=== PATIENT | female | born 1990 | race African-American/Black ===

== ENCOUNTER → 2020-09-28 16:43 | Outpatient (BNVA) | payer MEDICARE, MEDICAID, SELFPAY | PROVIDERS: Visit Provider Internal Medicine Gastroenterology | DX: K21.9 Gastro-esophageal reflux disease without esophagitis (principal); K50.90 Crohn's disease, unspecified, without complications; R11.2 Nausea with vomiting, unspecified; D64.9 Anemia, unspecified; R93.5 Abnormal findings on diagnostic imaging of other abdominal regions, including retroperitoneum; Z98.890 Other specified postprocedural states; Z79.899 Other long term (current) drug therapy | CPT/HCPCS: Q3014 ==

== ENCOUNTER 2020-10-23 07:55 | Day surgery (SDC) | payer MEDICARE, MEDICAID, SELFPAY ==
[2020-10-17 15:13] VITALS: BMI 20.5
--- NOTE | 2020-10-19 13:44 | P.CONAN_ITS ---
Documented by User: Monserrat Shah 10/19/20 13:44 HPI - Anesthesia Eval Consult details Narrative: 30yo F for Upper Endoscopy and Colonoscopy PMFSH Active Problems Active Problems: All Active Problems (Updated 10/17/20 @ 15:13 by Naomi Manning) Crohn's disease (Acute) GERD (gastroesophageal reflux disease) (Acute) Abnormal computed tomography of abdomen and pelvis (Acute) Anemia (Acute) BMI less than 19,adult (Acute) Hemoglobin C trait (Acute) Nausea and vomiting (Acute) Premenstrual syndrome (Acute) Past Medical History Medical History Crohn's disease GERD (gastroesophageal reflux disease) Syncopal episodes Surgical History Surgical History History of esophagogastroduodenoscopy (EGD) Hx of colonoscopy Social History Social History Household Members: None Alcohol intake: current Alcohol intake frequency: a few times a month Smoking Status: Never smoker Advance Directives: No Advance Directives Information Provided: No Advance Directives on File: No Meds Allergies Allergy/AdvReac Type Severity Reaction Status Date / Time aloe vera Allergy Mild rash, Verified 10/17/20 15:06 hives, redness infliximab [From Remicade] Allergy Mild rash, Verified 10/17/20 15:06 hives, redness latex Allergy Mild rash, Verified 10/17/20 15:06 hives, redness Penicillins Allergy Mild Unknown Verified 10/17/20 15:06 Home Medications Medication Instructions Recorded Confirmed Last Taken Type cholecalciferol (vitamin D3) 1,250 1,250 mcg PO QWEEK 09/28/20 10/17/20 Unknown History mcg (50,000 unit) capsule mirtazapine 15 mg tablet 7.5 mg PO BEDTIME tab 09/28/20 10/17/20 Unknown History multivitamin 1 tab PO DAILY 09/28/20 10/17/20 Unknown History ondansetron 4 mg disintegrating 4 mg PO Q8H 09/28/20 10/17/20 Unknown History tablet esomeprazole magnesium 40 mg PO DAILY 10/17/20 10/17/20 Unknown History fluticasone propionate 1 spray INTRANASAL DAILY 10/17/20 10/17/20 Unknown History Exam Exam Date and Time: October 19, 2020 1344 Height,Weight and Vital Signs: Height 5 ft 6 in Weight 57.606 kg Assessment and Plan Assessment Anesthesia Assessment: Chart Reviewed Documented by User: Lana Matta 10/23/20 09:02 [facility] Past Medical History Medical History Crohn's disease GERD (gastroesophageal reflux disease) Syncopal episodes Family History Family history of problems with anesthesia: No Surgical History Surgical History History of esophagogastroduodenoscopy (EGD) Hx of colonoscopy History of Problems with Anesthesia: No Social History Social History Household Members: None Alcohol intake: current Alcohol intake frequency: a few times a month Smoking Status: Never smoker Advance Directives: No Advance Directives Information Provided: No Advance Directives on File: No Meds Allergies Allergy/AdvReac Type Severity Reaction Status Date / Time aloe vera Allergy Mild rash, Verified 10/17/20 15:06 hives, redness infliximab [From Remicade] Allergy Mild rash, Verified 10/17/20 15:06 hives, redness latex Allergy Mild rash, Verified 10/17/20 15:06 hives, redness Penicillins Allergy Mild Unknown Verified 10/17/20 15:06 Home Medications Medication Instructions Recorded Confirmed Last Taken Type cholecalciferol (vitamin D3) 1,250 1,250 mcg PO QWEEK 09/28/20 10/17/20 Unknown History mcg (50,000 unit) capsule mirtazapine 15 mg tablet 7.5 mg PO BEDTIME tab 09/28/20 10/17/20 Unknown History multivitamin 1 tab PO DAILY 09/28/20 10/17/20 Unknown History ondansetron 4 mg disintegrating 4 mg PO Q8H 09/28/20 10/17/20 Unknown History tablet esomeprazole magnesium 40 mg PO DAILY 10/17/20 10/17/20 Unknown History fluticasone propionate 1 spray INTRANASAL DAILY 10/17/20 10/17/20 Unknown History Exam Height,Weight and Vital Signs: Vital Signs Temp Pulse Resp BP Pulse Ox 10/23/20 08:13 97.5 F 81 16 104/62 98 Pertinent Lab Results Pertinent Lab Results: Lab Results 10/23/20 Range/Units 08:08 Urine Test NEGATIVE (NEGATIVE) Airway Mallampati Class: II TM Dist: >3cm Neck ROM: Full Loose/Missing/Broken Teeth: Yes (Broken bottom right back) Heart: RRR Lungs: CTAB Assessment and Plan Assessment Anesthesia Assessment: Anesthesia Plan Discussed and Chart Reviewed Final Anesthetic Review NPO: Yes ASA Class: II Final Preanesthetic Review: No Changes in Pt Med Stat, Meds/Allgs Chart Reviewed, Consent Obtained/Reviewed and Anes Risks/Benef Reviewed Patient Risk: Low Procedure Risk: Low Assessment/Block/Sedation in SS: Assess/Block/Sedation-SS Anesthetic Plan Anesthetic Plan: MAC: Disposition: Standard PACU
[2020-10-23] VITALS (7 sets, daily range): BP systolic 96–120; BP diastolic 48–77; PULSE 79–87; RESP 10–20; TEMP 36.3–37.3; O2SAT 98–100
[2020-10-23] MEDS: Sodium Phosphate,Mono-Dibasic 133 ML ENEMA PR ×2 (08:20→08:32)
--- NOTE | 2020-10-23 08:27 | W.PM.OPN ---
Operative Note Operative Note Date of Service: 10/23/20 Narrative: Pre-op diagnosis: Crohn's disease, GERD, nausea and vomiting Post-op diagnosis: other (Gastritis, ulcers in TI, diverticulosis) Procedure: FLEXIBLE TRANSORAL UPPER GASTROINTESTINAL ENDOSCOPY WITH BIOPSIES AND COLONOSCOPY TILL CECUM/TI WITH BIOPSIES UPPER ENDOSCOPY Consent: Indications for the procedure and potential complications of bleeding, perforation, reaction to medications and missed diagnosis were discussed with the patient and informed consent was obtained. Instrument: Olympus GIF H 190 mid size upper endoscope Monitoring: Vital signs and clinical assessment, continuous EKG monitoring, Pulse oximetry, Carbon Dioxide monitoring and blood pressure monitoring were done throughout the procedure. Procedure: The patient was placed in the left lateral decubitis position and pre-procedure medications were administered and a bite block was placed. The endoscope was inserted into the mouth and advanced under direct vision to the third part of duodenum. A careful inspection was made as the upper endoscope was withdrawn including a retroflexed examination of the proximal stomach; Findings and interventions are described below. Findings: Larynx: normal. Esophagus: GE junction at 35 cms. Minimal focal superficial esophagitis 2 cms above the GEJ -likely related to retching and vomiting. No Rivera's. Stomach: Submucosal hemorrhages in the gastric fundus likely related to retching. Mild gastric erythema. Biopsies were obtained. Grade 2 flap valve on retroflexed examination of the cardia. Duodenum: Normal bulb and descending duodenum. Biopsies were obtained from 3rd part of the duodenum to check for upper GI Crohn's/celiac sprue. Intervention: Biopsies as noted above COLONOSCOPY PROCEDURE NOTE Consent: Indications for the procedure and potential complications of bleeding, perforation, reaction to medications and missed diagnosis were discussed with the patient and informed consent was obtained. Instrument: Olympus PCF H 190 L variable stiffness pediatric colonoscope Monitoring: Vital signs and clinical assessment, intermittent blood pressure monitoring, continuous EKG monitoring, Pulse oximetry and Carbon Dioxide monitoring were done throughout the procedure. Colon withdrawl time was 27 minutes. Procedure: The patient was placed in the left lateral decubitis position and pre-procedure medications were administered. After a digital rectal examination of the ano-rectum, the video colonoscope was inserted into the rectum and advanced through the colon to the cecum. The colonoscope was slowly withdrawn in a retrograde panoramic fashion and the colon mucosa was carefully examined including a retroflexed view of the rectum. Findings and interventions are described below. Procedure Difficulty: : Without difficulty Findings: Terminal Ileum: Distal 10-15 cms was examined and mucosa appeared edematous with multiple 2-5 mm chronic appearing ulcers - multiple biopsies obtained Cecum: Normal Ascending Colon: Normal Transverse Colon: Normal Descending Colon: Normal Sigmoid Colon: Moderate diverticulosis Rectum: Normal Ano-rectum: Small internal hemorrhoids Colon preparation: Good after some irrigation Impression and Post Procedure Diagnosis: Endoscopy Findings: ESOPHAGUS: Minimal focal superficial esophagitis 2 cms above the GEJ -likely related to retching and vomiting. No Rivera's. STOMACH: Submucosal hemorrhages in the gastric fundus likely related to retching. Mild gastric erythema. Biopsies were obtained. DUODENUM: Normal - biopsied to check for upper GI Crohn's disease Colonoscopy Findings: Distal 10-15 cms was examined and mucosa appeared edematous with multiple 2-5 mm chronic appearing ulcers - multiple biopsies obtained. Random biopsies were obtained from the right and left colon. No polyps were detected Moderate diverticulosis seen in the sigmoid colon Small hemorrhoids on retroflexed exam. Plan: Await pathology results Patient has an appointment on 11/12/20 in the GI Clinic with Walter Moeller M.D.. Repeat Colonoscopy interval based on path results - in 3-5 years if polyps are adenomatous and 10 years if polyps are hyperplastic. Above findings were reviewed with the patient and [colon polyps] and [diverticulosis] handouts were given in the discharge area Surgeon: Walter Moeller MD Anesthesia: MAC (Princess Cobian CRNA) Data Compiler: Migel Griffin Estimated blood loss (mL): 0 Pathology: other (A- SMALL BOWEL BXS R/O CROHN'S R/O CELIAC B- GASTRIC BXS R/O H. PYLORI C- TI BXS D- RANDOM RIGHT COLON BXS R/O CROHN'S E- RANDOM LEFT COLON BXS R/O CROHN'S F- RECTAL PO) Condition: stable Disposition: PACU
--- NOTE | 2020-10-23 08:27 | MHC.SHP ---
Pre-Procedural Eval Section A The patient is an INPATIENT: No Changes since office visit: Yes Patient answered all questions; No Cold of Flu in the past 2 weeks, No New Medical Problems and No Changes in Medication The History & Physical has been completed within 30 days and I have reviewed it.: Yes Section B Chief Complaint: crohns Allergies: Allergies Allergy/AdvReac Type Severity Reaction Status Date / Time aloe vera Allergy Mild rash, Verified 10/17/20 15:06 hives, redness infliximab [From Remicade] Allergy Mild rash, Verified 10/17/20 15:06 hives, redness latex Allergy Mild rash, Verified 10/17/20 15:06 hives, redness Penicillins Allergy Mild Unknown Verified 10/17/20 15:06 Review of Systems Sugical H&P ROS: Negative: Constitution, Cardiovascular and Respiratory and Yes, Specify: Gastrointestinal (Nausea and vomiting, diarrhea) Exam Surgical H&P Exam: Normal: Heart, Normal: Lungs, Normal: Extremities and Normal: Abdomen Plan Diagnosis/Plan: Unchanged I have reviewed the history and physical and performed a pertinent physical examination on my patient. No changes have occurred unless specified.
[2020-10-23 08:28] LABS: UPreg QC Valid YES; Urine Pregnancy NEGATIVE (NEGATIVE)
[2020-10-23] MEDS: Lactated Ringers 1,000 ML 100 ML IVCONT (08:54)
[2020-10-23] MEDS: ondansetron HCL 4 MG/2 ML VIAL IVPUSH (09:24)
--- NOTE | 2020-10-23 09:25 | PC.NURSE ---
patient dry heaving. states she usually takes zofran once a day. medicated with zofran and md hough gave reglan iv.
--- NOTE | 2020-10-23 09:28 | PC.NURSE ---
denies pain. dry heaving. hob 90 degrees. awaiting for medications to work.
[2020-10-23 11:25] LABS: MANUAL DIFF FLAG NO
[2020-10-23 11:33] LABS: Basophils Percent Auto 0.2 % (0-2); Eosinophils Absolute Auto 0.1 X10*3/uL (0.0-0.4); Eosinophils Percent Auto 0.4 % (0-4); Hematocrit 31.2 % (37-47); Hemoglobin 10.3 g/dl (12.0-16.0); Imm Gran Abs Auto 0.06 X10*3/uL (0.00-0.03); Imm Gran Pct Auto 0.4 % (0.0-0.4); Lymphocytes Absolute Auto 1.7 X10*3/uL (1.2-4.9); Lymphocytes Percent Auto 12.7 % (20-40); Mean Corpuscular Hemoglobin 23.6 pg (27.0-33.0); Mean Corpuscular Volume 71.4 fL (80-98); Mean Platelet Volume 11.5 fL (9.4-12.3); Monocytes Absolute Auto 0.6 X10*3/uL (0.1-1.2); Monocytes Percent Auto 4.4 % (2-11); Neutrophils Absolute Auto 10.9 X10*3/uL (2.0-8.3); Neutrophils Percent Auto 81.9 % (45-73); Platelet Count 297 X10*3/uL (160-400); Red Blood Count 4.37 X10*6/uL (4.20-5.50); Red Cell Distribution Width 15.8 % (11.0-16.0); White Blood Count 13.4 X10*3/uL (4.8-10.8)
[2020-10-23 11:54] LABS: Alanine Aminotransferase 29 U/L (0-31); Albumin Level 3.9 g/dL (3.5-5.0); Alkaline Phosphatase 60 U/L (39-117); Anion Gap 13 (12-20); Aspartate Amino Transferase 26 U/L (5-31); Bilirubin Total 0.3 mg/dL (0.0-1.0); Blood Urea Nitrogen 7 mg/dL (9-16); C Reactive Protein 0.42 mg/dL (< or = 0.50); Calcium 8.9 mg/dL (8.4-10.2); Carbon Dioxide 21 mmol/L (22-29); Chloride 109 mmol/L (96-108); Creatinine Clr Calc Pharmacy 107.4; Estimated Glomerular Filt Rate > 60; Glucose Random 119 mg/dL (60-115); Iron 33 mcg/dL (30-160); Percent Iron Saturation 9 % (15-50); Potassium 4.4 mmol/L (3.3-5.1); Sodium 139 mmol/L (135-145); Total Iron Binding Capacity 368 mcg/dL (228-428); Total Protein 6.9 g/dL (6.5-8.0); Unsaturated Iron Binding 335 ug/dL
[2020-10-23 12:12] LABS: Ferritin 6 ng/mL (10-122); Vitamin D 25-OH Total 9.9 ng/mL (>30)
[2020-10-23 12:37] LABS: Erythrocyte Sedimentation Rate 15 MM/HR (0-20)
[2020-10-23 12:42] LABS: Folate 10.6 ng/mL (> or = 4.0); Vitamin B12 420 pg/mL (200-900)
--- NOTE | 2020-10-23 13:55 | PC.NURSE ---
Late Entry - pt came through discharge at 1150 today. she had severe hyperemesis. Dr Moeller and Dr Matta contacted and updated with pt condition. Dr Matta ordered a dose of IV Phenargan to be administed. Pt transported back to PACU for iv insertion and administration of Phenargan by PACU staff
== END 2020-10-23 13:27 | disposition home or self-care (01) ==
PROVIDERS: Nurse Practitioner; Visit Provider Internal Medicine Gastroenterology
PROC: (CPT 45380; principal; 2020-10-23 09:00)
DX: K50.90 Crohn's disease, unspecified, without complications (principal); K57.30 Diverticulosis of large intestine without perforation or abscess without bleeding; K62.1 Rectal polyp; K63.3 Ulcer of intestine; K29.51 Unspecified chronic gastritis with bleeding; K21.00 Gastro-esophageal reflux disease with esophagitis, without bleeding; Z79.899 Other long term (current) drug therapy; Z88.8 Allergy status to other drugs, medicaments and biological substances; Z88.0 Allergy status to penicillin; Z91.040 Latex allergy status
CPT/HCPCS: 45380; 43239; 36415; 80053; 81025; 82306; 82607; 82728; 82746; 83540; 85025; 85652; 86140; 88305; 88342; J0330; J2405; J2550; J2765; J3010

== ENCOUNTER 2021-05-23 07:13 | Outpatient (REF) | payer MEDICARE, MEDICAID, SELFPAY ==
[2021-05-23 11:25] LABS: MANUAL DIFF FLAG SCAN; SCAN SMEAR FLAG 1
[2021-05-23 11:27] LABS: Basophils Percent Auto 0.4 % (0-2); Eosinophils Absolute Auto 0.1 X10*3/uL (0.0-0.4); Eosinophils Percent Auto 1.2 % (0-4); Imm Gran Abs Auto 0.02 X10*3/uL (0.00-0.03); Imm Gran Pct Auto 0.2 % (0.0-0.4); Lymphocytes Absolute Auto 2.3 X10*3/uL (1.2-4.9); Lymphocytes Percent Auto 23.4 % (20-40); Mean Corpuscular HGB Conc 34.4 g/dl (31.0-35.0); Mean Corpuscular Hemoglobin 23.6 pg (27.0-33.0); Mean Corpuscular Volume 68.5 fL (80.0-98.0); Mean Platelet Volume 12.1 fL (9.4-12.3); Monocytes Absolute Auto 0.6 X10*3/uL (0.1-1.2); Monocytes Percent Auto 6.5 % (2-11); Neutrophils Absolute Auto 6.8 x10*3/uL (2.0-8.3); Neutrophils Percent Auto 68.3 % (45-73); Platelet Count 295 X10*3/uL (160-400); Red Blood Count 4.67 X10*6/uL (4.20-5.50); Red Cell Distribution Width 16.5 % (11.0-16.0); White Blood Count 9.9 X10*3/uL (4.8-10.8)
[2021-05-23 11:31] LABS: PLT ABN DIST 1
[2021-05-23 11:50] LABS: Alanine Aminotransferase 64 U/L (0-31); Albumin Level 4.5 g/dL (3.5-5.0); Alkaline Phosphatase 94 U/L (39-117); Aspartate Amino Transferase 29 U/L (5-31); Bilirubin Direct 0.2 mg/dL (0.0-0.5); Bilirubin Total 0.4 mg/dL (0.0-1.0); Blood Urea Nitrogen 8 mg/dL (9-16); C Reactive Protein 0.48 mg/dL (< or = 0.50); Estimated Glomerular Filt Rate > 60; Iron 41 mcg/dL (30-160); Percent Iron Saturation 9 % (15-50); Total Iron Binding Capacity 446 mcg/dL (228-428); Total Protein 8.1 g/dL (6.5-8.0); Unsaturated Iron Binding 405 ug/dL
[2021-05-23 11:53] LABS: Ferritin 8 ng/mL (10-122)
[2021-05-23 13:24] LABS: Erythrocyte Sedimentation Rate 25 MM/HR (0-20)
== END 2021-05-23 07:14 | disposition home or self-care (01) ==
LOC: HO.HMGCLDS 07:13
PROVIDERS: Visit Provider Internal Medicine Gastroenterology
DX: K21.9 Gastro-esophageal reflux disease without esophagitis (principal); K50.90 Crohn's disease, unspecified, without complications; R93.5 Abnormal findings on diagnostic imaging of other abdominal regions, including retroperitoneum
CPT/HCPCS: 36415; 80076; 82565; 82728; 83540; 84520; 85025; 85652; 86140

== ENCOUNTER 2022-02-10 07:42 | Outpatient (AMB) | payer MEDICARE, MEDICAID, SELFPAY ==
--- NOTE | 2022-02-10 07:44 | A.OFFVIS_ITS ---
Vital Signs 02/10/22 08:01 Height 5 ft 6 in Weight 142 lb BMI 22.8 BP 94/56 L Position Sitting Respiration 16 Pulse 70 Intake Visit Reasons: Crohn's flare up Allergies aloe vera Allergy (Mild, Verified 02/10/22 08:01) rash, hives, redness infliximab [From Remicade] Allergy (Mild, Verified 02/10/22 08:01) rash, hives, redness latex Allergy (Mild, Verified 02/10/22 08:01) rash, hives, redness Penicillins Allergy (Mild, Verified 02/10/22 08:01) Unknown kiwi Allergy (Severe, Uncoded 02/10/22 08:01) Anaphylaxis percocet Allergy (Mild, Uncoded 02/10/22 08:01) Hives Medication List - Last Reconciled 02/10/22 by Walter Moeller MD esomeprazole magnesium 40 mg PO DAILY 30 days fluticasone propionate 50 mcg/actuation 1 spray intranasal DAILY mirtazapine (Remeron) 7.5 mg PO BEDTIME multivitamin 1 tab PO DAILY ondansetron 4 mg PO Q8H HPI HPI Crohn's flare up: Details: GI CLINIC VISIT FOR THIS 31 YEAR-OLD FEMALE FOR FOLLOW-UP OF CROHN'S DISEASE [place]S [place] [facility]07[place]18/2020 WBC 5.4, HEMOGLOBIN 11.4, HEMATOCRIT 34.2, MCV 71.8, PLATELETS 252, Sodium 139, potassium 4, chloride 107, bicarbonate 25, glucose 86, BUN 9, creatinine 0.7, calcium 9.3 Hemoglobin A1c was 5.1. T spot was negative. ENDOSCOPIC STUDIES: 10/2020 EGD AND COLONOSCOPY SHOWED: ESOPHAGUS: Minimal focal superficial esophagitis 2 cms above the GEJ -likely related to retching and vomiting.? No Rivera's. STOMACH: Submucosal hemorrhages in the gastric fundus likely related to retching.? Mild gastric erythema. Biopsies were obtained. DUODENUM:? Normal - biopsied to check for upper GI Crohn's disease Colonoscopy Findings: Distal 10-15 cms was examined and mucosa appeared edematous with multiple 2-5 mm chronic appearing ulcers - multiple biopsies obtained. Random biopsies were obtained from the right and left colon. No polyps were detected Moderate diverticulosis seen in the sigmoid colon Small hemorrhoids on retroflexed exam. Plan: Repeat Colonoscopy interval based on path results - in 5 yrs if colon biopsies are normal. BIOPSIES SHOWED: A. Small bowel, biopsy: Small bowel mucosa within normal limits; preserved villous architecture and no increased intraepithelial lymphocytes. B. Stomach, biopsy: Gastric antral mucosa within normal limits; negative for Helicobacter pylori, intestinal metaplasia and dysplasia. C. Terminal ileum, biopsy: Active ileitis, patchy, with mild activity (see co mment). D. Colon, right, biopsy: Colonic mucosa within normal limits; negative for active, chronic or microscopic colitis. E. Colon, left, biopsy: Colonic mucosa within normal limits; negative for act colleen, chronic or microscopic colitis. F. Rectum, polypectomy: Hyperplastic polyp. COMMENT (C): Neither chronic mucosal injury nor granulomas are seen. The differential diagnosis includes infection, drug effect and early idiopathic inflammatory bowel disease. IBD SUMMARY YEAR OF DIAGNOSIS: 2010 DISEASE EXTENT:? LAST COLONOSCOPY:? 2010 NEXT COLON DUE:? 2020 EXTRAINTESTINAL MANIFESTATIONS:? None GI SURGERY:? None PAST TREATMENTS:? Remicade with benadryl CURRENT THERAPY:? None TODAY'S VISIT: Having a flare since the or 2nd week of December,. Notes diarhhea, nausea, vomiting and intense heartburn. Burning inside the stomach. Back pain when pain is severe. Dizziness due to dehydration from nausea and vomiting. 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 Pt complains of occasional nausea and vomiting. [place] by Dr Mchugh [place] [facility] [place]. Has not been seen for the past 2-3 yrs. Noted nausea, vomiting and non bloody diarrhea since 2010. Evaluated by EGD and Colonoscopy and diagnosed with Crohn's diseases. Started on Remicade and had an allergic response on getting the 2nd or 3rd dose. She was continued on Remicade x 3 yrs (she was given benadryl before the Remicade infusion). Stopped going to GI since 2016. Has not been on any treatment since. Intermittent nausea and vomiting. Has a BM daily - sometimes loose (4-5 times a day) and sometimes they are formed. Appetite is good.? Lost some weight initially and has been gaining recently Weighs 127 lbs, Ht 5 feet 6 inches Denies any extraintestinal manifestations of CD. Patient denies major cardiac or pulmonary problems, loud snoring or sleep apnea Denies problems with anesthesia in the past. Denies being on chronic anticoagulation. Patient denies known family history of colon polyps, colon cancer or other GI malignancies. 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 She has no children. PAST EGD/COLONOSCOPY: 2010 at [facility] Review of Systems Const Reports difficulty sleeping, Denies fever(s), Reports headache(s) and Denies weight loss Eyes Denies eye discharge, Reports dry eyes and Denies irritation ENT Denies dysphagia, Denies dizziness, Reports dry mouth and Reports headache(s) Card Reports chest pain, Denies leg edema, Reports dyspnea ( at rest), Reports dyspnea on exertion and Reports other ( palpitations) Resp Denies cough, Reports dyspnea ( at rest) and Reports dyspnea on exertion GI Reports abdominal pain, Denies change in bowel habits, Denies dysphagia, Denies heartburn and Reports diarrhea Denies difficulty voiding, Denies dysuria and Reports other ( urinary frequency) Musc Denies back pain and Reports arthralgias ( arthritis) Skin/Breast Denies pruritus, Reports rash, Denies jaundice and Reports other (Alopecia, photosensitivity) Neuro Denies dizziness, Reports headache(s) and Denies seizure-like activity Psych Reports anxiety, Reports depression and Denies panic attacks PFSH Medical History Crohn's disease GERD (gastroesophageal reflux disease) Syncopal episodes Surgical History History of esophagogastroduodenoscopy (EGD) Hx of colonoscopy Social History Household Members: None Alcohol intake: current Alcohol intake frequency: a few times a month Physical Exam Vital Signs: Last Vital Signs Pulse 70 02/10/22 08:01 Resp 16 02/10/22 08:01 BP 94/56 L 02/10/22 08:01 BMI result Body Mass Index 22.8 Const General: no acute distress Nutritional Appearance: average body habitus Orientation/consciousness: patient oriented x3 Limitations: no limitations HEENT Head: Yes normal to inspection Ears: hearing grossly normal bilaterally Eyes Sclerae: sclerae normal Pupils: Equal, round and reactive pupils present Neck Neck: Yes normal visual inspection Chest Chest palpation & inspection: normal inspection of the chest Resp Effort & Inspection: normal respiratory effort Auscultation: clear to auscultation bilaterally Cardio Palpation: normal PMI Rate: regular rate Rhythm: regular rhythm Heart sounds: S1 normal heart sound present, S2 normal heart sound present and no murmurs GI Palpation (GI): Soft to palpation, nontender and No hepatosplenomegaly present Auscultation: normal bowel sounds Rectal Exam - Female: deferred Skin General skin exam: no rashes or lesions noted Neuro General: patient oriented x3, gait normal and moves all extremities Cranial nerves: Yes Equal, round and reactive pupils present Psych Appearance: grossly normal Mental Status: mental status grossly normal Assessment & Plan Assessment & Plan (1) Crohn's disease: Code(s): K50.90 - Crohn's disease, unspecified, without complications Category: Medical (2) GERD (gastroesophageal reflux disease): Code(s): K21.9 - Gastro-esophageal reflux disease without esophagitis Category: Medical (3) Anemia: Code(s): D64.9 - Anemia, unspecified Category: Medical Plan 31 YF diagnosed with Crohn's disease in 2010 and previously followed [place] Mchugh [place] [facility] Last endoscopic evaluation was in 2020. Patient continues to have symptoms of intermittent nausea and vomiting and non- bloody diarrhea. Patient was treated with the Remicade infusion from 2013 to 2016.? Benadryl was given with Remicade due to history of allergic reaction after the 2nd or 3rd dose. Patient was advised further evaluation with upper endoscopy and colonoscopy to determine Crohn's disease activity prior to initiating fpc therapy. Both procedures and potential complications including bleeding, perforation, drug reaction, aspiration and misdiagnosis were reviewed with the patient.? She will be prepped with Dulcolax and MiraLax. GI follow-up 1-2 weeks after her endoscopic procedures. Handout on Crohn disease was mailed to the patient with her after visit summary. 02/10/22 Having a flare since the 1st or 2nd week of December,. Notes diarhhea, nausea, vomiting and intense heartburn. Burning inside the stomach. Back pain when pain is severe. Pt advised to start Pentasa, check labs and schedule an MRI FU in 6 weeks after MRI ADDENDUM: MRI SHOWED: Mild wall thickening and enhancement of the terminal ileum compatible with patient's history of Crohn's disease.. Upper normal-size small bowel mesentery lymph nodes. Small liver cysts and probable hemangiomas. Bilateral renal cysts. Small uterine fibroids. Orders: Orders C Reactive Protein 02/10/22 K50.90 - Crohn's disease, unspecified, without complications, D64.9 - Anemia, unspecified Comprehensive Met. Panel 02/10/22 K50.90 - Crohn's disease, unspecified, without complications, D64.9 - Anemia, unspecified MR abdomen wo/w con 02/10/22 K50.90 - Crohn's disease, unspecified, without complications MR pelvis wo/w con 02/10/22 K50.90 - Crohn's disease, unspecified, without complications Complete Blood Count Auto Diff 02/10/22 K50.90 - Crohn's disease, unspecified, without complications, D64.9 - Anemia, unspecified Medications: New mesalamine ER (Pentasa) 1,000 mg (4 x 250 mg) PO QID 480 caps 2RF 30 days K50.90 - Crohn's disease, unspecified, without complications cholecalciferol (vitamin D3) 250 mcg PO 2XW 26 caps 1RF 90 days E55.9 - Vitamin D deficiency, unspecified Refilled esomeprazole magnesium 40 mg PO DAILY 30 caps 1RF GERD 30 days
[2022-02-10 08:01] VITALS: BP 94/56; PULSE 70; RESP 16; BMI 22.8
== END 2022-02-10 08:28 | disposition home or self-care (01) ==
LOC: HO.HGI 07:42
PROVIDERS: Visit Provider Internal Medicine Gastroenterology
DX: K50.90 Crohn's disease, unspecified, without complications (principal); K21.9 Gastro-esophageal reflux disease without esophagitis; D64.9 Anemia, unspecified
CPT/HCPCS: 99499

== ENCOUNTER 2022-02-10 08:35 | Outpatient (REF) | payer MEDICARE, MEDICAID, SELFPAY ==
[2022-02-10 08:58] LABS: MANUAL DIFF FLAG NO
[2022-02-10 09:18] LABS: Basophils Percent Auto 0.3 % (0-2); Eosinophils Absolute Auto 0.1 X10*3/uL (0.0-0.4); Eosinophils Percent Auto 1.5 % (0-4); Hematocrit 37.2 % (37.0-47.0); Hemoglobin 12.5 g/dl (12.0-16.0); Imm Gran Abs Auto 0.02 X10*3/uL (0.00-0.03); Imm Gran Pct Auto 0.3 % (0.0-0.4); Lymphocytes Absolute Auto 1.8 X10*3/uL (1.2-4.9); Mean Corpuscular HGB Conc 33.6 g/dl (31.0-35.0); Mean Corpuscular Volume 71.5 fL (80.0-98.0); Mean Platelet Volume 11.4 fL (9.4-12.3); Monocytes Absolute Auto 0.4 X10*3/uL (0.1-1.2); Monocytes Percent Auto 6.2 % (2-11); Neutrophils Absolute Auto 3.7 x10*3/uL (2.0-8.3); Neutrophils Percent Auto 61.7 % (45-73); Platelet Count 325 X10*3/uL (160-400); Red Cell Distribution Width 14.6 % (11.0-16.0); White Blood Count 5.9 X10*3/uL (4.8-10.8)
[2022-02-10 09:57] LABS: Alanine Aminotransferase 40 U/L (0-31); Albumin Level 4.8 g/dL (3.5-5.0); Alkaline Phosphatase 84 U/L (39-117); Anion Gap 16 (12-20); Aspartate Amino Transferase 23 U/L (5-31); Bilirubin Total 0.3 mg/dL (0.0-1.0); Blood Urea Nitrogen 10 mg/dL (9-16); C Reactive Protein 1.09 mg/dL (< or = 0.50); Calcium 9.8 mg/dL (8.4-10.2); Carbon Dioxide 24 mmol/L (22-29); Chloride 106 mmol/L (96-108); Estimated Glomerular Filt Rate > 60; Glucose Random 96 mg/dL (60-115); Potassium 4.5 mmol/L (3.3-5.1); Sodium 141 mmol/L (135-145); Total Protein 8.5 g/dL (6.5-8.0)
== END 2022-02-10 08:36 | disposition home or self-care (01) ==
LOC: HO.LAB 08:35
PROVIDERS: Visit Provider Internal Medicine Gastroenterology
DX: K50.90 Crohn's disease, unspecified, without complications (principal); D64.9 Anemia, unspecified
CPT/HCPCS: 36415; 80053; 85025; 86140

== ENCOUNTER 2022-03-03 09:04 | Outpatient (REF) | payer MEDICARE, MEDICAID, SELFPAY ==
--- NOTE | ~2022-03-03 | MR_ITS ---
EXAMINATION: MR ABDOMEN AND PELVIS WITH AND WITHOUT CONTRAST CLINICAL INFORMATION: Crohn's disease. Heartburn and reflux. COMPARISON: None TECHNIQUE: Sagittal axial and coronal sequences through the abdomen and pelvis with and without IV contrast and following 2 bottles of oral recent contrast. Patient vomited and could not tolerate additional oral contrast. Patient received 6.5 mL Gadavist intravenous contrast. FINDINGS: The stomach is normal. There is mild wall thickening and enhancement of the terminal ileum. No stricture or bowel dilatation is seen. No fistula or abscess is seen. The cecum is located low in the pelvis. Large bowel is otherwise normal. No perirectal changes. The appendix is not identified with certainty. No inflammatory changes in the right lower quadrant are seen. There are prominent small bowel mesentery lymph nodes in the right lower quadrant. Largest lymph nodes are upper normal in size measuring 1 cm. No ascites. The lung bases are clear. The liver is normal in size, shape and signal. There are 3 liver lesions that are low signal on T1 and high signal on T2-weighted sequences. One demonstrates early homogeneous enhancement in the lateral segment of the left lobe of the liver measuring 1.2 x 1.5 cm for example 26 post contrast series 19. Other 2 lesions measure 1 cm in the posterior segment of the right lobe and 7 mm in the posterior segment of the right lobe of the liver. These demonstrate peripheral puddling enhancement axial image 28 series 19 postcontrast. Probably represent hemangiomas. There are additional smaller liver cysts. Largest cyst measures 7 mm. The gallbladder is normal. There is no intra or extrahepatic biliary duct dilatation. The pancreas is normal. The main pancreatic duct does not appear dilated. The spleen is normal. Adrenal glands are normal. There are bilateral small renal cysts, largest measuring 7 mm in the midpole of the right kidney. The kidneys are otherwise normal. Bladder is normal. There are 2 uterine lesions measuring 2.5 cm subserosal to the posterior body of the uterus and 1 x 2 cm subserosal to the anterior body of the uterus probably representing fibroids. The uterus and adnexa are otherwise unremarkable. Vascular structures are normal. No hernia is seen. Bony structures are unremarkable. MR/MR abdomen wo/w con IMPRESSION: Mild wall thickening and enhancement of the terminal ileum compatible with patient's history of Crohn's disease.. Upper normal-size small bowel mesentery lymph nodes. Small liver cysts and probable hemangiomas. Bilateral renal cysts. Small uterine fibroids.
== END 2022-03-03 09:05 | disposition home or self-care (01) ==
LOC: HO.MRI 09:04
PROVIDERS: Visit Provider Internal Medicine Gastroenterology
DX: K50.90 Crohn's disease, unspecified, without complications (principal)
CPT/HCPCS: 72197; 74183; A9585

== ENCOUNTER 2024-02-18 08:56 | Outpatient (REF) | payer MEDICARE, MEDICAID, SELFPAY ==
[2024-02-18 10:11] LABS: MANUAL DIFF FLAG NO
[2024-02-18 10:24] LABS: Basophils Percent Auto 0.4 % (0-2); Eosinophils Absolute Auto 0.1 X10*3/uL (0.0-0.4); Eosinophils Percent Auto 0.7 % (0-4); Hematocrit 36.1 % (37.0-47.0); Hemoglobin 12.2 g/dl (12.0-16.0); Imm Gran Abs Auto 0.02 X10*3/uL (0.00-0.03); Imm Gran Pct Auto 0.3 % (0.0-0.4); Lymphocytes Absolute Auto 2.2 X10*3/uL (1.2-4.9); Mean Corpuscular HGB Conc 33.8 g/dl (31.0-35.0); Mean Corpuscular Hemoglobin 24.6 pg (27.0-33.0); Mean Corpuscular Volume 72.9 fL (80.0-98.0); Mean Platelet Volume 11.8 fL (9.4-12.3); Monocytes Absolute Auto 0.4 X10*3/uL (0.1-1.2); Monocytes Percent Auto 5.5 % (2-11); Neutrophils Absolute Auto 4.2 x10*3/uL (2.0-8.3); Neutrophils Percent Auto 61.1 % (45-73); Platelet Count 299 X10*3/uL (160-400); Red Blood Count 4.95 X10*6/uL (4.20-5.50); Red Cell Distribution Width 14.8 % (11.0-16.0); White Blood Count 6.9 X10*3/uL (4.8-10.8)
[2024-02-18 11:19] LABS: Alanine Aminotransferase 83 U/L (0-31); Albumin Level 4.7 g/dL (3.5-5.0); Alkaline Phosphatase 87 U/L (39-117); Anion Gap 13 (12-20); Aspartate Amino Transferase 44 U/L (5-31); Bilirubin Total 0.2 mg/dL (0.0-1.0); Blood Urea Nitrogen 15 mg/dL (9-16); C Reactive Protein 1.23 mg/dL (< or = 0.50); Calcium 10.6 mg/dL (8.4-10.2); Carbon Dioxide 25 mmol/L (22-29); Chloride 105 mmol/L (96-108); Estimated Glomerular Filt Rate > 60; Glucose Random 91 mg/dL (60-115); Potassium 3.8 mmol/L (3.3-5.1); Sodium 139 mmol/L (135-145); Total Protein 8.7 g/dL (6.5-8.0)
[2024-02-18 11:25] LABS: Vitamin D 25-OH Total 35.3 ng/mL (>30)
[2024-02-18 11:36] LABS: Folate > 20.0 ng/mL (> or = 4.0); Vitamin B12 566 pg/mL (200-900)
== END 2024-02-18 08:57 | disposition home or self-care (01) ==
LOC: HO.LAB 08:56
PROVIDERS: PCP Internal Medicine; Visit Provider Internal Medicine Gastroenterology
DX: K50.90 Crohn's disease, unspecified, without complications (principal); K21.9 Gastro-esophageal reflux disease without esophagitis; D64.9 Anemia, unspecified; R11.2 Nausea with vomiting, unspecified
CPT/HCPCS: 36415; 80053; 82306; 82607; 82746; 85025; 86140; 99212

== ENCOUNTER 2024-02-18 08:56 | Outpatient (AMB) | payer MEDICARE, SELFPAY ==
--- NOTE | 2024-02-18 08:59 | A.OFFVIS_ITS ---
Vital Signs 02/18/24 09:01 Height 5 ft 6 in Weight 160 lb 7.944 oz BMI 25.9 BP 119/90 H Blood Pressure Location Lt brachial Position Sitting Pulse 94 Intake Visit Reasons: pt req appointment Intake Note: Patient in office today in follow up of Chron's disease. CC: Patient states that she has not been here because her Chron's was well controlled with weed . 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 She states as of right now her Chron's still in remission but she does not wants to wait until she gets a flare up. Patient states that she obtained a medical marijuana card and that's how she's been having getting the medical marijuana. Allergies aloe vera Allergy (Mild, Verified 02/18/24 09:07) rash, hives, redness infliximab [From Remicade] Allergy (Mild, Verified 02/18/24 09:07) rash, hives, redness latex Allergy (Mild, Verified 02/18/24 09:07) rash, hives, redness Penicillins Allergy (Mild, Verified 02/18/24 09:07) Unknown kiwi Allergy (Severe, Uncoded 02/10/22 08:01) Anaphylaxis percocet Allergy (Mild, Uncoded 02/10/22 08:01) Hives Medication List - Last Reconciled 02/18/24 by Walter Moeller MD cholecalciferol (vitamin D3) 250 mcg PO 2XW 90 days fluticasone propionate 50 mcg/actuation 1 spray intranasal DAILY mesalamine ER (Pentasa) 1,000 mg (4 x 250 mg) PO QID 30 days mirtazapine (Remeron) 7.5 mg PO BEDTIME multivitamin 1 tab PO DAILY omeprazole 40 mg PO DAILY ondansetron 4 mg PO Q8H HPI HPI pt req appointment: Details: GI CLINIC VISIT FOR THIS 33 YEAR-OLD FEMALE FOR FOLLOW-UP OF CROHN'S DISEASE Last GI clinic visit was on 02/10/2022 [place]S [place] [facility] [place]:??07/18/2020 WBC 5.4, HEMOGLOBIN 11.4, HEMATOCRIT 34.2, MCV 71.8, PLATELETS 252, Sodium 139, potassium 4, chloride 107, bicarbonate 25, glucose 86, BUN 9, creatinine 0.7, calcium 9.3 Hemoglobin A1c was 5.1. T spot was negative. IMAGING STUDIES: ABDOMINAL MRI SHOWED: Mild wall thickening and enhancement of the terminal ileum compatible with patient's history of Crohn's disease.. Upper normal-size small bowel mesentery lymph nodes. Small liver cysts and probable hemangiomas. Bilateral renal cysts. Small uterine fibroids. ENDOSCOPIC STUDIES: 10/2020 EGD AND COLONOSCOPY SHOWED: ESOPHAGUS: Minimal focal superficial esophagitis 2 cms above the GEJ -likely related to retching and vomiting.? No Rivera's. STOMACH: Submucosal hemorrhages in the gastric fundus likely related to retching.? Mild gastric erythema. Biopsies were obtained. DUODENUM:? Normal - biopsied to check for upper GI Crohn's disease Colonoscopy Findings: Distal 10-15 cms was examined and mucosa appeared edematous with multiple 2-5 mm chronic appearing ulcers - multiple biopsies obtained. Random biopsies were obtained from the right and left colon. No polyps were detected Moderate diverticulosis seen in the sigmoid colon Small hemorrhoids on retroflexed exam. Plan: Repeat Colonoscopy interval based on path results - in 5 yrs if colon biopsies are normal. BIOPSIES SHOWED: A. Small bowel, biopsy: Small bowel mucosa within normal limits; preserved villous architecture and no increased intraepithelial lymphocytes. B. Stomach, biopsy: Gastric antral mucosa within normal limits; negative for Helicobacter pylori, intestinal metaplasia and dysplasia. C. Terminal ileum, biopsy: Active ileitis, patchy, with mild activity (see comment). D. Colon, right, biopsy: Colonic mucosa within normal limits; negative for active, chronic or microscopic colitis. E. Colon, left, biopsy: Colonic mucosa within normal limits; negative for active, chronic or microscopic colitis. F. Rectum, polypectomy: Hyperplastic polyp. COMMENT (C): Neither chronic mucosal injury nor granulomas are seen. The differential diagnosis includes infection, drug effect and early idiopathic inflammatory bowel disease. IBD SUMMARY YEAR OF DIAGNOSIS: 2010 DISEASE EXTENT:? LAST COLONOSCOPY:? 2010 NEXT COLON DUE:? 2020 EXTRAINTESTINAL MANIFESTATIONS:? None GI SURGERY:? None PAST TREATMENTS:? Remicade with benadryl CURRENT THERAPY:? None TODAY'S VISIT: CC: Patient states that she has not been here because her Chron's was well controlled with weed . 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 She states as of right now her Chrohn's still in remision but she does not wants to wait until she gets a flare up. Pt denies abdominal pain or diarrhea. Denies any flare ups BMs are soft and gets constipated intermittently Takes Omeprazole daily for GERD otherwise she can have acid reflux Taking edibles and THC with control of her symptoms States Pentasa was working and stopped the Pentasa after she started using weed. In 2022 she ended up going to [facility] with a GI bleed (had coffee ground emesis) PAST VISITS: Having a flare since the 1st or 2nd week of December,. Notes diarhhea, nausea, vomiting and intense heartburn. Burning inside the stomach. Back pain when pain is severe. Dizziness due to dehydration from nausea and vomiting. 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 Pt complains of occasional nausea and vomiting. Followed by Dr Mchugh at [facility] [place] since 2013. Has not been seen for the past 2-3 yrs. Noted nausea, vomiting and non bloody diarrhea since 2010. Evaluated by EGD and Colonoscopy and diagnosed with Crohn's diseases. Started on Remicade and had an allergic response on getting the 2nd or 3rd dose. She was continued on Remicade x 3 yrs (she was given benadryl before the Remicad e infusion). Stopped going to GI since 2016. Has not been on any treatment since. Intermittent nausea and vomiting. Has a BM daily - sometimes loose (4-5 times a day) and sometimes they are formed. Appetite is good.? Lost some weight initially and has been gaining recently Weighs 127 lbs, Ht 5 feet 6 inches Denies any extraintestinal manifestations of CD. Patient denies major cardiac or pulmonary problems, loud snoring or sleep apnea Denies problems with anesthesia in the past. Denies being on chronic anticoagulation. Patient denies known family history of colon polyps, colon cancer or other GI malignancies. 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 She has no children. PAST EGD/COLONOSCOPY: 2010 at [facility] Medical History GERD (gastroesophageal reflux disease) Crohn's disease Syncopal episodes Surgical History History of esophagogastroduodenoscopy (EGD) Hx of colonoscopy Social History Household Members: None Alcohol intake: current Alcohol intake frequency: a few times a month Review of Systems Const All systems reviewed & are unremarkable except as noted in HPI and below Physical Exam Vital Signs: Last Vital Signs Pulse 94 02/18/24 09:01 BP 119/90 H 02/18/24 09:01 BMI result Body Mass Index 25.9 Const General: no acute distress Nutritional Appearance: average body habitus Orientation/consciousness: patient oriented x3 Limitations: no limitations HEENT Head: Yes normal to inspection Ears: hearing grossly normal bilaterally Eyes Sclerae: sclerae normal Pupils: Equal, round and reactive pupils present Neck Neck: Yes normal visual inspection Chest Chest palpation & inspection: normal inspection of the chest Resp Effort & Inspection: normal respiratory effort Auscultation: clear to auscultation bilaterally Cardio Palpation: normal PMI Rate: regular rate Rhythm: regular rhythm Heart sounds: S1 normal heart sound present, S2 normal heart sound present and no murmurs GI Palpation (GI): Soft to palpation, nontender and No hepatosplenomegaly present Auscultation: normal bowel sounds Rectal Exam - Female: deferred Skin General skin exam: no rashes or lesions noted Neuro General: patient oriented x3, gait normal and moves all extremities Cranial nerves: Yes Equal, round and reactive pupils present Psych Appearance: grossly normal Mental Status: mental status grossly normal Assessment & Plan Assessment & Plan (1) Crohn's disease: Code(s): K50.90 - Crohn's disease, unspecified, without complications Category: Medical (2) GERD (gastroesophageal reflux disease): Code(s): K21.9 - Gastro-esophageal reflux disease without esophagitis Category: Medical (3) Anemia: Code(s): D64.9 - Anemia, unspecified Category: Medical (4) Nausea and vomiting: Code(s): R11.2 - Nausea with vomiting, unspecified Category: Medical Plan 33 YF diagnosed with Crohn's disease in 2010 and previously followed by Dr Mchugh at [facility] [place] Last endoscopic evaluation was in 2020. Patient continues to have symptoms of intermittent nausea and vomiting and non- bloody diarrhea. Patient was treated with the Remicade infusion from 2013 to 2017.? Benadryl was given with Remicade due to history of allergic reaction after the 2nd or 3rd dose. Patient was advised further evaluation with upper endoscopy and colonoscopy to determine Crohn's disease activity prior to initiating jacquard card lacer therapy. Handout on Crohn disease was mailed to the patient with her after visit summary. 02/10/22 Having a flare since the 1st or 2nd week of December,. Notes diarhhea, nausea, vomiting and intense heartburn. Burning inside the stomach. Back pain when pain is severe. 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 She states as of right now her Chrohn's still in remision but she does not wants to wait until she gets a flare up. Takes Omeprazole daily for GERD otherwise she can have acid reflux Taking edibles and THC with control of her symptoms States Pentasa was working and stopped the Pentasa after she started using weed and would like to resume taking Pentasa. Pt was advised to have labs checked and resume Pentasa (check Fecal calprotectin 4 to 6 weeks after resuming Pentasa) She plans to taper off Marijuana after she resumes Pentasa FU in 3 months Orders: Orders Complete Blood Count Auto Diff Today K50.90 - Crohn's disease, unspecified, without complications C Reactive Protein Today K50.90 - Crohn's disease, unspecified, without complications Comprehensive Met. Panel Today K50.90 - Crohn's disease, unspecified, without complications Vitamin B12 and Folate Today K50.90 - Crohn's disease, unspecified, without complications Vitamin D 25-OH Total Today K50.90 - Crohn's disease, unspecified, without complications Calprotectin, Fecal Today K50.90 - Crohn's disease, unspecified, without complications Medications: Changed From ondansetron 4 mg PO Q8H K50.90 - Crohn's disease, unspecified, without complications, R11.2 - Nausea with vomiting, unspecified To ondansetron 4 mg PO Q8H PRN 20 tabs 3RF nausea and vomiting 30 days K50.90 - Crohn's disease, unspecified, without complications, R11.2 - Nausea with vomiting, unspecified Refilled mesalamine ER (Pentasa) 1,000 mg (4 x 250 mg) PO QID 480 caps 2RF 30 days K5 0.90 - Crohn's disease, unspecified, without complications Coding Level of Care Code Est Pt Level 4 (06808) Diagnoses Crohn's disease K50.90 GERD (gastroesophageal reflux disease) K21.9 Anemia D64.9 Nausea and vomiting R11.2 Time Spent (min) 23
[2024-02-18 09:01] VITALS: BP 119/90; PULSE 94; BMI 25.9
== END 2024-02-18 09:35 | disposition home or self-care (01) ==
PROVIDERS: Visit Provider Internal Medicine Gastroenterology
DX: K50.90 Crohn's disease, unspecified, without complications (principal); K21.9 Gastro-esophageal reflux disease without esophagitis; D64.9 Anemia, unspecified; R11.2 Nausea with vomiting, unspecified
CPT/HCPCS: 99214

== ENCOUNTER 2024-05-09 10:13 | Outpatient (REF) | payer MEDICARE, SELFPAY ==
[2024-05-19 04:18] LABS: Calprotectin, Fecal 231 mcg/g
== END 2024-05-09 10:14 | disposition home or self-care (01) ==
LOC: HO.LNP 10:13
PROVIDERS: Visit Provider Internal Medicine Gastroenterology
DX: K50.90 Crohn's disease, unspecified, without complications (principal)
CPT/HCPCS: 83993

== ENCOUNTER 2024-05-19 07:43 | Outpatient (REF) | payer MEDICARE, SELFPAY ==
[2024-05-19 09:36] LABS: HBS Num1 > 1000.00 mIU/mL (0-7.99); HBc Num1 0.15 S/CO (0.00-0.79); HBsAGNum1 0.34 S/CO (0.00-0.99); HIV AB/AG Nonreactive (Nonreactive); HIV Num 1 0.06 S/CO (0.00-0.99); Hepatitis B Core Antibody Nonreactive (Nonreactive); Hepatitis B Surface Antigen Negative (Negative); ~HepC Num1 0.12 S/CO (0.00-0.79); ~Hepatitis B Surface Antibody REACTIVE (Nonreactive); ~Hepatitis C Antibody Nonreactive (Nonreactive)
[2024-05-21 22:38] LABS: TS Negative Control Passed; TS Panel A 0; TS Panel B 0; TS Positive Control Passed; TSpotTB Negative (Negative)
== END 2024-05-19 07:44 | disposition home or self-care (01) ==
LOC: HO.LAB 07:43
PROVIDERS: PCP Internal Medicine; Visit Provider Internal Medicine Gastroenterology
DX: K50.90 Crohn's disease, unspecified, without complications (principal); R79.89 Other specified abnormal findings of blood chemistry; D64.9 Anemia, unspecified; K21.9 Gastro-esophageal reflux disease without esophagitis; R10.11 Right upper quadrant pain
CPT/HCPCS: 36415; 86481; 86704; 86706; 86803; 87340; 87389; 99212

== ENCOUNTER 2024-05-19 07:43 | Outpatient (AMB) | payer MEDICARE, SELFPAY ==
--- NOTE | 2024-05-19 07:40 | MHC.OFFVIS ---
Vital Signs 05/19/24 07:51 Height 5 ft 6 in Weight 152 lb 8 oz BMI 24.6 BP 83/63 L Blood Pressure Location Lt brachial Position Sitting Intake Visit Reasons: 3 month follow up Intake Note: Patient 3 month follow up for Anemia,Lab/stool results. Patient denies any GI issues. Applications Sales Consultant Required: No Accompanied by: Self / Same As Patient Allergies aloe vera Allergy (Mild, Verified 05/19/24 07:48) rash, hives, redness infliximab [From Remicade] Allergy (Mild, Verified 05/19/24 07:48) rash, hives, redness latex Allergy (Mild, Verified 05/19/24 07:48) rash, hives, redness Penicillins Allergy (Mild, Verified 05/19/24 07:48) Unknown kiwi Allergy (Severe, Uncoded 02/10/22 08:01) Anaphylaxis percocet Allergy (Mild, Uncoded 02/10/22 08:01) Hives Medication List - Last Reconciled 05/19/24 by Walter Moeller MD cholecalciferol (vitamin D3) 250 mcg PO 2XW 90 days fluticasone propionate 50 mcg/actuation 1 spray intranasal DAILY mesalamine ER (Pentasa) 1,000 mg (4 x 250 mg) PO QID 30 days mirtazapine (Remeron) 7.5 mg PO BEDTIME multivitamin 1 tab PO DAILY omeprazole 40 mg PO DAILY ondansetron 4 mg PO Q8H PRN 30 days HPI HPI 3 month follow up: Details: GI CLINIC VISIT FOR THIS 33 YEAR-OLD FEMALE FOR FOLLOW-UP OF CROHN'S DISEASE Last GI clinic visit was on 02/10/2022 IBD SUMMARY YEAR OF DIAGNOSIS: 2010 DISEASE EXTENT:? LAST COLONOSCOPY:? 2010 NEXT COLON DUE:? 2020 EXTRAINTESTINAL MANIFESTATIONS:? None GI SURGERY:? None PAST TREATMENTS:? Remicade with benadryl CURRENT THERAPY:? None TODAY'S VISIT: Doing well. Concerned about wt loss from 160 to 152 lbs. Has had diarrhea off and on - 2-4 soft non bloody BMs a day (chalky white color a few weeks ago) Denies abd pain. Denies EI manifestations of Crohn's disease Notes HB despite taking Omeprazole Complains of intermittent RUQ pain radiating to the back PAST VISITS: CC: Patient states that she has not been here because her Chron's was well controlled with weed . 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 She states as of right now her Chrohn's still in remision but she does not wants to wait until she gets a flare up. Pt denies abdominal pain or diarrhea. Denies any flare ups BMs are soft and gets constipated intermittently Takes Omeprazole daily for GERD otherwise she can have acid reflux Taking edibles and THC with control of her symptoms States Pentasa was working and stopped the Pentasa after she started using weed. In 2022 she ended up going to [facility] with a GI bleed (had coffee ground emesis) PAST VISITS: Having a flare since the or 2nd week of December,. Notes diarhhea, nausea, vomiting and intense heartburn. Burning inside the stomach. Back pain when pain is severe. Dizziness due to dehydration from nausea and vomiting. 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 Pt complains of occasional nausea and vomiting. Followed by Dr Mchugh at [facility] since 2013. Has not been seen for the past 2-3 yrs. Noted nausea, vomiting and non bloody diarrhea since 2010. Evaluated by EGD and Colonoscopy and diagnosed with Crohn's diseases. Started on Remicade and had an allergic response on getting the 2nd or 3rd dose. She was continued on Remicade x 3 yrs (she was given benadryl before the Remicade infusion). Stopped going to GI since 2016. Has not been on any treatment since. Intermittent nausea and vomiting. Has a BM daily - sometimes loose (4-5 times a day) and sometimes they are formed. Appetite is good.? Lost some weight initially and has been gaining recently Weighs 127 lbs, Ht 5 feet 6 inches Denies any extraintestinal manifestations of CD. Patient denies major cardiac or pulmonary problems, loud snoring or sleep apnea Denies problems with anesthesia in the past. Denies being on chronic anticoagulation. Patient denies known family history of colon polyps, colon cancer or other GI malignancies. 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 She has no children. PAST EGD/COLONOSCOPY: 2010 at [facility]:??07/18/2020 WBC 5.4, HEMOGLOBIN 11.4, HEMATOCRIT 34.2, MCV 71.8, PLATELETS 252, Sodium 139, potassium 4, chloride 107, bicarbonate 25, glucose 86, BUN 9, creatinine 0.7, calcium 9.3 Hemoglobin A1c was 5.1. T spot was negative. IMAGING STUDIES: ABDOMINAL MRI SHOWED: Mild wall thickening and enhancement of the terminal ileum compatible with patient's history of Crohn's disease.. Upper normal-size small bowel mesentery lymph nodes. Small liver cysts and probable hemangiomas. Bilateral renal cysts. Small uterine fibroids. ENDOSCOPIC STUDIES: 10/2020 EGD AND COLONOSCOPY SHOWED: ESOPHAGUS: Minimal focal superficial esophagitis 2 cms above the GEJ -likely related to retching and vomiting.? No Rivera's. STOMACH: Submucosal hemorrhages in the gastric fundus likely related to retching.? Mild gastric erythema. Biopsies were obtained. DUODENUM:? Normal - biopsied to check for upper GI Crohn's disease Colonoscopy Findings: Distal 10-15 cms was examined and mucosa appeared edematous with multiple 2-5 mm chronic appearing ulcers - multiple biopsies obtained. Random biopsies were obtained from the right and left colon. No polyps were detected Moderate diverticulosis seen in the sigmoid colon Small hemorrhoids on retroflexed exam. Plan: Repeat Colonoscopy interval based on path results - in 5 yrs if colon biopsies are normal. BIOPSIES SHOWED: A. Small bowel, biopsy: Small bowel mucosa within normal limits; preserved villous architecture and no increased intraepithelial lymphocytes. B. Stomach, biopsy: Gastric antral mucosa within normal limits; negative for Helicobacter pylori, intestinal metaplasia and dysplasia. C. Terminal ileum, biopsy: Active ileitis, patchy, with mild activity (see comment). D. Colon, right, biopsy: Colonic mucosa within normal limits; negative for active, chronic or microscopic colitis. E. Colon, left, biopsy: Colonic mucosa within normal limits; negative for active, chronic or microscopic colitis. F. Rectum, polypectomy: Hyperplastic polyp. COMMENT (C): Neither chronic mucosal injury nor granulomas are seen. The differential diagnosis includes infection, drug effect and early idiopathic inflammatory bowel disease. [facility] Medical History GERD (gastroesophageal reflux disease) Crohn's disease Syncopal episodes Surgical History History of esophagogastroduodenoscopy (EGD) Hx of colonoscopy Social History Household Members: None Alcohol intake: current Alcohol intake frequency: a few times a month Review of Systems Const All systems reviewed & are unremarkable except as noted in HPI and below Physical Exam Vital Signs: Last Vital Signs BP 83/63 L 05/19/24 07:51 BMI result Body Mass Index 24.6 Const General: no acute distress Nutritional Appearance: average body habitus Orientation/consciousness: patient oriented x3 Limitations: no limitations HEENT Head: Yes normal to inspection Ears: hearing grossly normal bilaterally Eyes Sclerae: sclerae normal Pupils: Equal, round and reactive pupils present Neck Neck: Yes normal visual inspection Chest Chest palpation & inspection: normal inspection of the chest Resp Effort & Inspection: normal respiratory effort Auscultation: clear to auscultation bilaterally Cardio Palpation: normal PMI Rate: regular rate Rhythm: regular rhythm Heart sounds: S1 normal heart sound present, S2 normal heart sound present and no murmurs GI Palpation (GI): Soft to palpation, nontender and No hepatosplenomegaly present Auscultation: normal bowel sounds Rectal Exam - Female: deferred Skin General skin exam: no rashes or lesions noted Neuro General: patient oriented x3, gait normal and moves all extremities Cranial nerves: Yes Equal, round and reactive pupils present Psych Appearance: grossly normal Mental Status: mental status grossly normal Assessment & Plan Assessment & Plan (1) Anemia: Code(s): D64.9 - Anemia, unspecified Category: Medical (2) GERD (gastroesophageal reflux disease): Code(s): K21.9 - Gastro-esophageal reflux disease without esophagitis Category: Medical (3) Crohn's disease: Code(s): K50.90 - Crohn's disease, unspecified, without complications Category: Medical (4) Elevated LFTs: Code(s): R79.89 - Other specified abnormal findings of blood chemistry Category: Medical (5) RUQ abdominal pain: Code(s): R10.11 - Right upper quadrant pain Category: Medical Plan 33 YF diagnosed with Crohn's disease in 2010 and previously followed by Dr Mchugh at [facility].? Last endoscopic evaluation was in 2020. Patient continues to have symptoms of intermittent nausea and vomiting and non-bloody diarrhea. Patient was treated with the Remicade infusion from 2013 to 2016.? Benadryl was given with Remicade due to history of allergic reaction after the 2nd or 3rd dose. Patient was advised further evaluation with upper endoscopy and colonoscopy to determine Crohn's disease activity prior to initiating long term acute care registered nurse therapy. Handout on Crohn disease was mailed to the patient with her after visit summary. 02/10/22 Having a flare since the 1st or 2nd week of December,. Notes diarhhea, nausea, vomiting and intense heartburn. Burning inside the stomach. Back pain when pain is severe. 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 She states as of right now her Chrohn's still in remision but she does not wants to wait until she gets a flare up. Takes Omeprazole daily for GERD otherwise she can have acid reflux Taking edibles and THC with control of her symptoms States Pentasa was working and stopped the Pentasa after she started using weed and would like to resume taking Pentasa. Pt was advised to have labs checked and resume Pentasa (check Fecal calprotectin 4 to 6 weeks after resuming Pentasa) She plans to taper off Marijuana after she resumes Pentasa 05/19/24 Concerned about wt loss from 160 to 152 lbs. Has had diarrhea off and on - 2-4 soft non bloody BMs a day Lab results suggestive of active Crohn's disease - elevated CRP, fecal calprotectin > 200 Pt advised to start Entyvio - prefers to come in for infusions rather than take SQ injections at home (noted pain on S/Q injections in the past when she was on Humira) Abd US for evaluation of RUQ pain and elevated LFTs Pt will be scheduled for an EGD (GERD) and a colonoscopy for IBD surveillance. FU in 3 month Orders: Orders HIV Ab/Ag Today K50.90 - Crohn's disease, unspecified, without complications, R79.89 - Other specified abnormal findings of blood chemistry US abdomen complete Today R10.11 - Right upper quadrant pain, R79.89 - Other specified abnormal findings of blood chemistry Hepatitis B Surface Antibody Today K50.90 - Crohn's disease, unspecified, without complications, R79.89 - Other specified abnormal findings of blood chemistry Hepatitis B Surface Antigen Today K50.90 - Crohn's disease, unspecified, without complications, R79.89 - Other specified abnormal findings of blood chemistry Hepatitis B Core Antibody Today K50.90 - Crohn's disease, unspecified, without complications, R79.89 - Other specified abnormal findings of blood chemistry Hepatitis C Antibody Today K50.90 - Crohn's disease, unspecified, without complications, R79.89 - Other specified abnormal findings of blood chemistry T Spot TB Today K50.90 - Crohn's disease, unspecified, without complications, R79.89 - Other specified abnormal findings of blood chemistry EGD/[place] Combo - GI Use Only Today Medications: New vedolizumab (Entyvio) administer 2nd dose 2 weeks after first dose; administer over 30 minutes Allergy to Remicade 300 mg IV Q2W 0RF K50.90 - Crohn's disease, unspecified, without complications vedolizumab (Entyvio) administer week 6 of treatment 300 mg IV Q4W 0RF K50.90 - Crohn's disease, unspecified, without complications bisacodyl (Dulcolax (bisacodyl)) Take 4 tablets at 12 pm the day before colonoscopy appointment 20 mg (4 x 5 mg) PO ONCE 1 day 4 tabs 0RF colon prep polyethylene glycol 3350 (Miralax) Mix Miralax with 64 oz(8 cups) of Crystal light. Take 2 tablets of Dulcolax qt 12 pm. Wait to have your 1st bowel movement, then begin drinking Miralax. Drink a glass of Miralax every 10-15 minutes until you are finished. You will drink at least another 4 cups of clear liquid of your choice over the next 2 hours. Please drink as many clear liquids as possible You may have clear liquids up to four hours before your procedure 17 grams PO DAILY 1 day 238 grams 0RF colon prep Coding Level of Care Code Est Pt Level 4 (50375) Diagnoses Anemia D64.9 GERD (gastroesophageal reflux disease) K21.9 Crohn's disease K50.90 Elevated LFTs R79.89 RUQ abdominal pain R10.11 Time Spent (min) 21
[2024-05-19 07:51] VITALS: BP 83/63; BMI 24.6
== END 2024-05-19 08:22 | disposition home or self-care (01) ==
LOC: HO.HGI 07:44
PROVIDERS: Visit Provider Internal Medicine Gastroenterology
DX: D64.9 Anemia, unspecified (principal); K21.9 Gastro-esophageal reflux disease without esophagitis; K50.90 Crohn's disease, unspecified, without complications; R79.89 Other specified abnormal findings of blood chemistry; R10.11 Right upper quadrant pain
CPT/HCPCS: 99214

== ENCOUNTER 2024-06-02 08:08 | Outpatient (REF) | payer MEDICARE, SELFPAY | END 2024-06-02 08:09 | disposition home or self-care (01) | LOC: HO.US 08:08 | PROVIDERS: PCP Internal Medicine; Visit Provider Internal Medicine Gastroenterology | DX: R10.11 Right upper quadrant pain (principal); R79.89 Other specified abnormal findings of blood chemistry | CPT/HCPCS: 76700 ==

== ENCOUNTER 2024-09-19 10:44 | Day surgery (SDC) | payer OTHER, SELFPAY ==
[2024-09-15 12:42] VITALS: BMI 24.5
--- OUTSIDE RECORDS SUMMARY | 2024-09-15 17:56 | XMS_ITS | Clinical Summary ---
Author Organization [facility] Address [address] [place] [address] Phone Care Team Providers Care Shrimp Trawler Captain Name Role Phone Patience Anna MD Primary Care Provider Allergies Active Allergy Reactions Criticality Noted Date Comments Penicillins Hives Medium 07/23/2024 Infliximab Anaphylaxis High 07/23/2024 Medications methocarbamoL (ROBAXIN) 750 mg tablet Take 2 tablets (1,500 mg total) by mouth 4 (four) times a day if needed for muscle spasms for up to 10 days. 40 each 5 Active lidocaine (LIDODERM) 5 % patchIndication s:Rib pain on right side Apply 1 patch topically 1 (one) time each day. Remove & discard patch within 12 hours or as directed by . 30 patch 5 08/22/19 25 Encounters Date Type Department Care Team Description 07/23/2024 9:16 PM EST - 07/23/2024 11:[address] [facility] [address] [place] [address] Rib pain on right side (Primary Dx) Discharge Disposition: Home or Self Care from Last 3 Months Medical History Medical History Date Comments Abdominal pain despite therapy for Crohn's disea se (CMS/HCC) Family History Medical History Relation Name Comments Colon cancer Other 1 mat ggm Relation Name Status Comments Other 1 Other 2 Social History Tobacco Use Types Packs/Day Years Used Date Smoking Tobacco: Never Smokeless Tobacco: Current Tobacco Cessation:Ready to Q uit: No; Counseling Given: Not Answered Alcohol Use Standard Drinks/Week Comments No 0 (1 standard drink = 0.6 oz pur e alcohol) Comments Unknown Sex and Gender Information Value Date Recorded Sex Assigned at Female 07/23/2024 9:24 PM EST Legal Sex Female 6:53 AM EST Gender Identity Female 07/23/2024 9:24 PM EST Sexual Orientation Not on file Obstetrics History Last Filed Vital Signs Vital Sign Reading Time Taken Comments Blood Pressure 110/78 07/23/2024 8:23 PM EST Pulse 89 07/23/2024 8:23 PM EST Temperature 36.7 ??C (98.1 ??F) 07/23/2024 8:23 PM ES T Respiratory Rate 18 07/23/2024 8:23 PM EST Oxygen Saturation 100% 07/23/2024 8:23 PM EST Inhaled Oxygen Concentration - - Weight 70.3 kg (155 lb) 07/23/2024 8:23 PM EST Height 170.2 cm (5' 7 ) 07/23/2024 8:23 PM EST Body Mass Index 24.28 07/23/2024 8:23 PM EST Plan of Treatment Health Maintenance Due Date Last Done Comments HPV Vaccines (2 - 3-dose series) 11/10/2006 10/13/2006 Hepatitis B Vaccines (1 of 3 - 19+ 3-dose series) 2008 Pneumococcal Vaccine: Pediatrics (0 to 5 Years) and At-Risk Patients (6 to 64 Years) (1 of 2 - PCV) 2008 Cervical Cancer Screening: P ap Smear 2010 Cholesterol Screening (Lipid Panel) 08/11/2023 Depression Screening 08/11/2023 HIV Screening 08/11/2023 Hepatitis C Screening 08/11/2023 Medicare Annual Wellness Visit 08/11/2023 Social Influencers of Health Screening 08/11/2023 COVID-19 Vaccine ( - 2023-2 5 season) 2024 11/12/2021, 04/13/2021, 03/12/2021 Influenza Vaccine (#1) 2024 DTaP,Tdap,and Td Vaccines (2 - Td or Tdap) 03/11/2033 03/11/2023 HIB Vaccines Aged Out No longer eligi ble based on patient's age to complete this topic Hepatitis A Vaccines Aged Out No long er eligible based on patient's age to complete this topic IPV Vaccines Aged Out No longer eligi ble based on patient's age to complete this topic MMR Vaccines Aged Out No longer eligi ble based on patient's age to complete this topic Meningococcal ACWY Vaccine Aged Out N o longer eligible based on patient's age to complete this topic Meningococcal B Vacine Aged Out No lo nger eligible based on patient's age to complete this topic RSV Immunization Patients Under 20 months Aged Out No longer eligible b ased on patient's age to complete this topic Varicella Vaccines Aged Out No longer eligible based on patient's age to complete this topic Procedures Procedure Name Priority Date/Time Associated Diagnosis Comments XR RIBS W CHEST 3+ VIEWS RIGHT STAT 07/23/2024 10:51 PM EST from Last 3 Months Results * XR Ribs w Chest 3+ Views Right (07/23/2024 10:51 PM EST) Anatomical Region Laterality Modality Body Right Radiographic Jazmin ging 07/24/2024 8:37 AM EST Impressions 07/24/2024 8:39 AM EST Lungs are clear bilaterally. ??No effusion or pneumothorax. ??The mediastinum appears normal. ??Dedicated views were performed of the right-sided ribs. ??No visible fracture or displacement is noted. -------- FINAL REPORT -------- Dictated By: London Lopez Dictated Date: 07/24/2024 08:37 ET Assigned Physician: London Lopez Reviewed and Electronically Signed By: London Lopez Signed Date: 07/24/2024 08:39 ET Workstation ID: [id number] Transcribed By: Self Edit Transcribed Date: 07/24/2024 08:37 ET Narrative 07/24/2024 8:39 AM EST PROCEDURE: XR RIBS W CHEST 3+ VIEWS RIGHT INDICATION: pain COMPARISON: Chest and RIBS radiograph May 2022 Procedure Note London Lopez MD - 07/24/2024 PROCEDURE: XR RIBS W CHEST 3+ VIEWS RIGHT INDICATION: pain COMPARISON: Chest and RIBS radiograph May 2022 IMPRESSION: Lungs are clear bilaterally. No effusion or pneumothorax. Themediastinum appears normal. Dedicated views were performed of theright-sided ribs. No visible fracture or displacement is noted. -------- FINAL REPORT -------- Dictated By: London Lopez Dictated Date: 07/24/2024 08:37 ET Assigned Physician: London Lopez Reviewed and Electronically Signed By: London Lopez Signed Date: 07/24/2024 08:39 ET Workstation ID: [id number] Transcribed By: Self Edit Transcribed Date: 07/24/2024 08:37 ET Osman Diana MD IMG XR PROCEDURES Final R esult from Last 3 Months Insurance MEDICARE Member Subscriber Plan / Payer (Ef fective 2024-Present) Name:CabralStefany Relation to Subscriber:Self Name:Stefany Cabral Payer ID:[id number] Group ID:Not on file Type:Not on file Address: [address] [place] [address] MEDICAID - [place] Care Teams Shrimp Trawler Captain Relationship Specialty Start Date End Date Paitence Anna MD [address] [address] PCP - General Internal Medicine 07/23/24
--- NOTE | 2024-09-16 09:44 | HO.ANESPROP2 ---
Documented by User: Monserrat Shah NP 09/16/24 09:44 HPI - Anesthesia Eval Consult details Narrative: 34yo F for Upper Endoscopy and Colonoscopy PMFSH Active Problems Active Problems: All Active Problems RUQ abdominal pain (Acute) Elevated LFTs (Acute) Premenstrual syndrome (Acute) Nausea and vomiting (Acute) Hemoglobin C trait (Acute) BMI less than 19,adult (Acute) Anemia (Acute) Abnormal computed tomography of abdomen and pelvis (Acute) GERD (gastroesophageal reflux disease) (Acute) Crohn's disease (Acute) Past Medical History Medical History GERD (gastroesophageal reflux disease) Crohn's disease Syncopal episodes Family History Family history of problems with anesthesia: No Surgical History Surgical History History of esophagogastroduodenoscopy (EGD) Hx of colonoscopy History of Problems with Anesthesia: No Social History Social History Household Members: None Are you a primary campground caretaker to a significant other at home: No Do you presently have visiting nurse or other home services: No Alcohol intake: current Alcohol intake frequency: a few times a month Patient Tobacco Use Status: Current everyday Tobacco user Tobacco use type: Smokeless Tobacco Smoked in Last 30 Days: Yes Patient Interested in Nicotine Replacement: No Substance Use Frequency: Occasionally Have you been hit, kicked, punched, or otherwise hurt by someone within the past year? If so, by whom?: No Are you DNR?: No Advance Directives: No Advance Directives Information Provided: Yes Recently lost weight without trying: No Nutrition Risks: No Nutritional Risk FDLMP: currently Meds Allergies Allergy/AdvReac Type Severity Reaction Status Date / Time aloe vera Allergy Mild rash, Verified 09/19/24 11:24 hives, redness infliximab [From Remicade] Allergy Mild rash, Verified 09/19/24 11:24 hives, redness latex Allergy Mild rash, Verified 09/19/24 11:24 hives, redness Penicillins Allergy Mild Unknown Verified 09/19/24 11:24 kiwi Allergy Severe Anaphylaxis Uncoded 09/19/24 11:24 percocet Allergy Mild Hives Uncoded 09/19/24 11:24 Home Medications ?Medication ?Instructions ?Recorded ?Confirmed ?Last Taken ?Type mirtazapine 15 mg tablet (Remeron) 7.5 mg PO BEDTIME 09/28/20 09/19/24 Unknown History multivitamin 1 tab PO DAILY 09/28/20 09/19/24 Unknown History fluticasone propionate 50 1 spray intranasal DAILY 10/17/20 09/19/24 Unknown History mcg/actuation nasal spray,suspension omeprazole 40 mg capsule,delayed 40 mg PO DAILY 02/18/24 09/19/24 Unknown History release Exam Height,Weight and Vital Signs: Height 5 ft 6 in Weight 68.946 kg Assessment and Plan Assessment Anesthesia Assessment: Chart Reviewed Final Anesthetic Review Family History of Problems with Anesthesia: No History of Problems with Anesthesia: No Documented by User: Keara Mcknight MD 09/19/24 12:49 [facility] Past Medical History Medical History GERD (gastroesophageal reflux disease) Crohn's disease Syncopal episodes Surgical History Surgical History History of esophagogastroduodenoscopy (EGD) Hx of colonoscopy Social History Social History Household Members: None Are you a primary campground caretaker to a significant other at home: No Do you presently have visiting nurse or other home services: No Alcohol intake: current Alcohol intake frequency: a few times a month Patient Tobacco Use Status: Current everyday Tobacco user Tobacco use type: Smokeless Tobacco Smoked in Last 30 Days: Yes Patient Interested in Nicotine Replacement: No Substance Use Frequency: Occasionally Have you been hit, kicked, punched, or otherwise hurt by someone within the past year? If so, by whom?: No Are you DNR?: No Advance Directives: No Advance Directives Information Provided: Yes Recently lost weight without trying: No Nutrition Risks: No Nutritional Risk FDLMP: currently Meds Allergies Allergy/AdvReac Type Severity Reaction Status Date / Time aloe vera Allergy Mild rash, Verified 09/19/24 11:24 hives, redness infliximab [From Remicade] Allergy Mild rash, Verified 09/19/24 11:24 hives, redness latex Allergy Mild rash, Verified 09/19/24 11:24 hives, redness Penicillins Allergy Mild Unknown Verified 09/19/24 11:24 kiwi Allergy Severe Anaphylaxis Uncoded 09/19/24 11:24 percocet Allergy Mild Hives Uncoded 09/19/24 11:24 Home Medications ?Medication ?Instructions ?Recorded ?Confirmed ?Last Taken ?Type mirtazapine 15 mg tablet (Remeron) 7.5 mg PO BEDTIME 09/28/20 09/19/24 Unknown History multivitamin 1 tab PO DAILY 09/28/20 09/19/24 Unknown History fluticasone propionate 50 1 spray intranasal DAILY 10/17/20 09/19/24 Unknown History mcg/actuation nasal spray,suspension omeprazole 40 mg capsule,delayed 40 mg PO DAILY 02/18/24 09/19/24 Unknown History release Exam Airway Mallampati Class: II TM Dist: >3cm Neck ROM: Full Loose/Missing/Broken Teeth: No Heart: RRR Lungs: CTA Assessment and Plan Assessment Anesthesia Assessment: Anesthesia Plan Discussed Final Anesthetic Review NPO: Yes ASA Class: II Final Preanesthetic Review: Meds/Allgs Chart Reviewed, Consent Obtained/Reviewed and Anes Risks/Benef Reviewed Patient Risk: Low Procedure Risk: Intermediate Anesthetic Plan Anesthetic Plan: MAC: Disposition: Standard PACU
[2024-09-19 11:07] VITALS: BMI 25.5
[2024-09-19 11:13] LABS: UPreg QC Valid YES; Urine Pregnancy NEGATIVE (NEGATIVE)
[2024-09-19] MEDS: Lactated Ringers 1,000 ML 100 ML IVCONT (11:13)
[2024-09-19 11:20] VITALS: BP 105/78; PULSE 78; RESP 18; TEMP 36.7; O2SAT 100
--- NOTE | 2024-09-19 11:46 | MHC.SHP ---
Pre-Procedural Eval Section A - 24 Hr Update-Section A only Date of Service: 09/19/24 The patient is an INPATIENT: No The patient has been examined within 24 hours of the surgical procedure. The History & Physical has been completed within 30 days and I have reviewed it.: No Section B - Complete if H&P > 30 days Chief Complaint: Crohn's disease, unspecified, without complication Relevant Family History (Specify if Yes): No Relevant Social History: None Present Medications: see Short Stay Collaborative assessment Medical History: Significant History (GERD (gastroesophageal reflux disease) Crohn's disease Syncopal episodes) History of Previous Operations: Relevant previous surgery/procedure and date(s) (History of EGD and colonoscopy) Allergies: Allergies Allergy/AdvReac Type Severity Reaction Status Date / Time aloe vera Allergy Mild rash, Verified 09/19/24 11:24 hives, redness infliximab [From Remicade] Allergy Mild rash, Verified 09/19/24 11:24 hives, redness latex Allergy Mild rash, Verified 09/19/24 11:24 hives, redness Penicillins Allergy Mild Unknown Verified 09/19/24 11:24 kiwi Allergy Severe Anaphylaxis Uncoded 09/19/24 11:24 percocet Allergy Mild Hives Uncoded 09/19/24 11:24 Review of Systems Sugical H&P ROS: Negative: Constitution, Cardiovascular, Respiratory and Gastrointestinal Exam Surgical H&P Exam: Normal: Heart, Normal: Lungs, Normal: Extremities and Normal: Abdomen Plan Diagnosis/Plan: Unchanged I have reviewed the history and physical and performed a pertinent physical examination on my patient. No changes have occurred unless specified. Time Spent With Patient Time: Total time managing care of this patient today ____ minutes.
--- NOTE | 2024-09-19 12:56 | HO.OPN-COLON ---
Colonoscopy Operative Note Operative Note Date of Service: 09/19/24 Narrative: FLEXIBLE TRANSORAL UPPER GASTROINTESTINAL ENDOSCOPY WITH BIOPSIES AND COLONOSCOPY TILL CECUM WITH BIOPSIES Pre-op diagnosis: Crohn's disease, GERD Post-op diagnosis: Gastritis, Inactive Crohn's disease, Diverticulosis Endoscopist:? Walter Moeller MD Anesthesia:?MAC UPPER ENDOSCOPY Consent: Indications for the procedure and potential complications of bleeding, perforation, reaction to medications and missed diagnosis were discussed with the patient and informed consent was obtained. Instrument: Olympus GIF H 190 mid size upper endoscope Monitoring: Vital signs and clinical assessment, continuous EKG monitoring, Pulse oximetry, Carbon Dioxide monitoring and blood pressure monitoring were done throughout the procedure. Procedure: The patient was placed in the left lateral decubitis position and pre-procedure medications were administered and a bite block was placed. The endoscope was inserted into the mouth and advanced under direct vision to the third part of duodenum. A careful inspection was made as the upper endoscope was withdrawn including a retroflexed examination of the proximal stomach; Findings and interventions are described below. Findings: Larynx: Normal Esophagus: GE junction at 36 cms. No esophagitis or Rivera's. Stomach: Moderate antral erythema - biopsies were obtained from the antrum. Grade 2 flap valve on retroflexed examination of the cardia. Duodenum: Normal bulb and descending duodenum Intervention: Biopsies as noted above COLONOSCOPY PROCEDURE NOTE Instrument: Olympus PCF H 190 L variable stiffness pediatric colonoscope Monitoring: Vital signs and clinical assessment, intermittent blood pressure monitoring, continuous EKG monitoring, Pulse oximetry and Carbon Dioxide monitoring were done throughout the procedure. Please see anesthesia flowsheet. Colon withdrawl time was 15 minutes. Procedure: The patient was placed in the left lateral decubitis position and pre-procedure medications were administered. After a digital rectal examination of the ano-rectum, the video colonoscope was inserted into the rectum and advanced through the colon to the cecum. The colonoscope was slowly withdrawn in a retrograde panoramic fashion and the colon mucosa was carefully examined including a retroflexed view of the rectum. Findings and interventions are described below. Procedure Difficulty: without difficulty Findings: Terminal Ileum: Distal 7-8 cms was examined and appeared normal. Random biopsies were obtained Cecum: Normal Ascending Colon: Normal Transverse Colon: Normal Descending Colon: Normal Sigmoid Colon: Moderate diverticulosis Rectum: Normal Ano-rectum: Normal Colon preparation: Good after some irrigation. [place] Bowel Preparation Scale Right colon; 2 Transverse colon: 2 Left colon; 2 (0 = Unprepared colon segment with mucosa not seen due to solid stool that cannot be cleared. 1 = Portion of mucosa of the colon segment seen, but other areas of the colon segment not well seen due to staining, residual stool and/or opaque liquid. 2 = Minor amount of residual staining, small fragments of stool and/or opaque liquid, but mucosa of colon segment seen well. 3 = Entire mucosa of colon segment seen well with no residual staining, small fragments of stool or opaque liquid) Impression and Post Procedure Diagnosis: Endoscopy Findings: ESOPHAGUS: Normal STOMACH: Moderate antral gastritis DUODENUM: Normal Colonoscopy Findings: No polyps were detected Moderate diverticulosis seen in the sigmoid colon Random biopsies were obtained from TI, right and left colon Plan: Pt will be scheduled for a FU appointment with Dr Moeller Repeat Colonoscopy in 2 years for Crohn's disease surveillance. Above findings were reviewed with the patient and relevant handouts were given and the discharge area. BIOPSIES SHOWED: A. Stomach, antrum, biopsy: Gastric antral mucosa within normal limits; negative for Helicobacter pylori, intestinal metaplasia and dysplasia. B. Terminal ileum, biopsy: Ileal mucosa within normal limits; negative for active or chronic ileitis. C. Colon, right, biopsy: Colonic mucosa within normal limits; negative for active, chronic or microscopic colitis. D. Colon, left, biopsy: Colonic mucosa within normal limits; negative for active, chronic or microscopic colitis. COMMENT: No granulomas or dysplasia are seen in any of the biopsies. Letter sent with biopsy results. Patient was placed on the colonoscopy recall list.
[2024-09-19 13:33] VITALS: BP 110/87; PULSE 76; RESP 16; TEMP 36.8; O2SAT 100
[2024-09-19 13:48] VITALS: BP 111/62; PULSE 89; RESP 16; TEMP 36.8; O2SAT 100
== END 2024-09-19 14:12 | disposition home or self-care (01) ==
PROVIDERS: Nurse Practitioner; PCP Internal Medicine; Visit Provider Internal Medicine Gastroenterology
PROC: (CPT 45380; principal; 2024-09-19 12:50)
DX: K50.90 Crohn's disease, unspecified, without complications (principal); K57.30 Diverticulosis of large intestine without perforation or abscess without bleeding; K21.9 Gastro-esophageal reflux disease without esophagitis; D64.9 Anemia, unspecified; K29.50 Unspecified chronic gastritis without bleeding; Z88.0 Allergy status to penicillin; Z88.5 Allergy status to narcotic agent; Z88.8 Allergy status to other drugs, medicaments and biological substances; Z91.040 Latex allergy status; Z79.51 Long term (current) use of inhaled steroids; Z79.899 Other long term (current) drug therapy; R79.89 Other specified abnormal findings of blood chemistry
CPT/HCPCS: 45380; 43239; 81025; 88305; 88313; 88342; J2003; J2704

== ENCOUNTER → 2024-09-19 10:44 | Outpatient (BNV) | payer OTHER, SELFPAY | PROVIDERS: PCP Internal Medicine; Visit Provider Internal Medicine Gastroenterology | DX: K21.9 Gastro-esophageal reflux disease without esophagitis (principal); K29.70 Gastritis, unspecified, without bleeding; K50.90 Crohn's disease, unspecified, without complications; K57.30 Diverticulosis of large intestine without perforation or abscess without bleeding | CPT/HCPCS: 43239; 45380 ==

== ENCOUNTER 2025-05-18 08:05 | Outpatient (AMB) | payer OTHER, SELFPAY ==
--- NOTE | 2025-05-18 08:07 | A.OFFVIS_ITS ---
Vital Signs 05/18/25 08:09 Height 5 ft 7 in Weight 168 lb 6.931 oz BMI 26.4 BP 108/68 Blood Pressure Location Rt brachial Position Sitting Pulse 101 H Intake Visit Reasons: crohns Intake Note: Patient follow up for Crohn's. Reports stable w/Entyvio Q8wks. GUY: 05-19-2024 Colonoscopy~ 09-19-2024 Patient c/o: feels anemic, tired, cold most days. 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 Required: No Accompanied by: Self / Same As Patient Allergies aloe vera Allergy (Mild, Verified 05/18/25 08:13) rash, hives, redness infliximab (From Remicade) Allergy (Mild, Verified 05/18/25 08:13) rash, hives, redness latex Allergy (Mild, Verified 05/18/25 08:13) rash, hives, redness Penicillins Allergy (Mild, Verified 05/18/25 08:13) Unknown kiwi Allergy (Severe, Uncoded 05/18/25 08:13) Anaphylaxis percocet Allergy (Mild, Uncoded 05/18/25 08:13) Hives Medication List - Last Reconciled 05/18/25 by Walter Moeller MD fluticasone propionate 50 mcg/actuation 1 spray intranasal DAILY mirtazapine (Remeron) 7.5 mg PO BEDTIME multivitamin 1 tab PO DAILY omeprazole 40 mg PO DAILY ondansetron 4 mg PO Q8H PRN vedolizumab (Entyvio) 300 mg IV Q2W 2 doses vedolizumab (Entyvio) 300 mg IV Q4W 1 dose HPI HPI crohns: Details: GI CLINIC VISIT FOR THIS 34 YEAR-OLD FEMALE FOR FOLLOW-UP OF CROHN'S DISEASE Last GI clinic visit was on 02/10/2022 IBD SUMMARY YEAR OF DIAGNOSIS: 2010 DISEASE EXTENT:? LAST COLONOSCOPY:? 2024 NEXT COLON DUE:? 2026 EXTRAINTESTINAL MANIFESTATIONS:? None GI SURGERY:? None PAST TREATMENTS:? Remicade with benadryl CURRENT THERAPY:? Entyvio infusion every 8 weeks TODAY'S VISIT: Feels cold and sometimes gets dizzy and lightheaded - thinks she is anemic Has heavy periods - periods last 5 to 7 days. 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 Notes abd pain if she eats something does not agree with her Denies mouth ulcers, skin rash or jt problems Continues to have HB with coffee, soda and sometimes even after drinking water - advised barium swallow. Entyvio infusions are going well without problems PAST VISITS: Doing well. Concerned about wt loss from 160 to 152 lbs. Has had diarrhea off and on - 2-4 soft non bloody BMs a day (chalky white color a few weeks ago) Denies abd pain. Denies EI manifestations of Crohn's disease Notes HB despite taking Omeprazole Complains of intermittent RUQ pain radiating to the back CC: Patient states that she has not been here because her Chron's was well controlled with weed . 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 She states as of right now her Chrohn's still in remision but she does not wants to wait until she gets a flare up. Pt denies abdominal pain or diarrhea. Denies any flare ups BMs are soft and gets constipated intermittently Takes Omeprazole daily for GERD otherwise she can have acid reflux Taking edibles and THC with control of her symptoms States [employer] was working and stopped the Pent[employer] after she started using weed. In 2022 she ended up going to [facility] with a GI bleed (had coffee ground emesis) PAST VISITS: Having a flare since the or 2nd week of December,. Notes diarhhea, nausea, vomiting and intense heartburn. Burning inside the stomach. Back pain when pain is severe. Dizziness due to dehydration from nausea and vomiting. 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 Pt complains of occasional nausea and vomiting. Followed by Dr Mchugh at [facility] [place]. Has not been seen for the past 2-3 yrs. Noted nausea, vomiting and non bloody diarrhea since 2010. Evaluated by EGD and Colonoscopy and diagnosed with Crohn's diseases. Started on Remicade and had an allergic response on getting the 2nd or 3rd dose. She was continued on Remicade x 3 yrs (she was given benadryl before the Remicade infusion). Stopped going to GI since 2016. Has not been on any treatment since. Intermittent nausea and vomiting. Has a BM daily - sometimes loose (4-5 times a day) and sometimes they are formed. Appetite is good.? Lost some weight initially and has been gaining recently Weighs 127 lbs, Ht 5 feet 6 inches Denies any extraintestinal manifestations of CD. Patient denies major cardiac or pulmonary problems, loud snoring or sleep apnea Denies problems with anesthesia in the past. Denies being on chronic anticoagulation. Patient denies known family history of colon polyps, colon cancer or other GI malignancies. 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 She has no children. PAST EGD/COLONOSCOPY: [place] at [facility] [place] [facility]:??07/18/2020 WBC 5.4, HEMOGLOBIN 11.4, HEMATOCRIT 34.2, MCV 71.8, PLATELETS 252, Sodium 139, potassium 4, chloride 107, bicarbonate 25, glucose 86, BUN 9, creatinine 0.7, calcium 9.3 Hemoglobin A1c was 5.1. T spot was negative. IMAGING STUDIES: ABDOMINAL MRI SHOWED: Mild wall thickening and enhancement of the terminal ileum compatible with patient's history of Crohn's disease.. Upper normal-size small bowel mesentery lymph nodes. Small liver cysts and probable hemangiomas. Bilateral renal cysts. Small uterine fibroids. ENDOSCOPIC STUDIES: 10/2020 EGD AND COLONOSCOPY SHOWED: ESOPHAGUS: Minimal focal superficial esophagitis 2 cms above the GEJ -likely related to retching and vomiting.? No Rivera's. STOMACH: Submucosal hemorrhages in the gastric fundus likely related to retching.? Mild gastric erythema. Biopsies were obtained. DUODENUM:? Normal - biopsied to check for upper GI Crohn's disease Colonoscopy Findings: Distal 10-15 cms was examined and mucosa appeared edematous with multiple 2-5 mm chronic appearing ulcers - multiple biopsies obtained. Random biopsies were obtained from the right and left colon. No polyps were detected Moderate diverticulosis seen in the sigmoid colon Small hemorrhoids on retroflexed exam. Plan: Repeat Colonoscopy interval based on path results - in 5 yrs if colon biopsies are normal. BIOPSIES SHOWED: A. Small bowel, biopsy: Small bowel mucosa within normal limits; preserved villous architecture and no increased intraepithelial lymphocytes. B. Stomach, biopsy: Gastric antral mucosa within normal limits; negative for Helicobacter pylori, intestinal metaplasia and dysplasia. C. Terminal ileum, biopsy: Active ileitis, patchy, with mild activity (see comment). D. Colon, right, biopsy: Colonic mucosa within normal limits; negative for active, chronic or microscopic colitis. E. Colon, left, biopsy: Colonic mucosa within normal limits; negative for active, chronic or microscopic colitis. F. Rectum, polypectomy: Hyperplastic polyp. COMMENT (C): Neither chronic mucosal injury nor granulomas are seen. The differential diagnosis includes infection, drug effect and early idiopathic inflammatory bowel disease PFSH Medical History (Updated 05/18/25 @ 08:41 by Waletr Moeller MD) GERD (gastroesophageal reflux disease) Crohn's disease Syncopal episodes Surgical History (Updated 04/04/25 @ 11:29 by Sangeeta Uribe) History of esophagogastroduodenoscopy (EGD) Hx of colonoscopy Social History Household Members: None Are you a primary manager critical care unit to a significant other at home: No Do you presently have visiting nurse or other home services: No Alcohol intake: current Alcohol intake frequency: a few times a month Patient Tobacco Use Status: Current everyday Tobacco user Tobacco use type: Smokeless Tobacco Review of Systems Const All systems reviewed & are unremarkable except as noted in HPI and below Physical Exam Vital Signs: Last Vital Signs Pulse 101 H 05/18/25 08:09 BP 108/68 05/18/25 08:09 BMI result Body Mass Index 26.4 Const General: no acute distress Nutritional Appearance: average body habitus Orientation/consciousness: patient oriented x3 Limitations: no limitations HEENT Head: Yes normal to inspection Ears: hearing grossly normal bilaterally Eyes Sclerae: sclerae normal Pupils: Equal, round and reactive pupils present Neck Neck: Yes normal visual inspection Chest Chest palpation & inspection: normal inspection of the chest Resp Effort & Inspection: normal respiratory effort Auscultation: clear to auscultation bilaterally Cardio Palpation: normal PMI Rate: regular rate Rhythm: regular rhythm Heart sounds: S1 normal heart sound present, S2 normal heart sound present and no murmurs GI Palpation (GI): Soft to palpation, nontender and No hepatosplenomegaly present Auscultation: normal bowel sounds Rectal Exam - Female: deferred Skin General skin exam: no rashes or lesions noted Neuro General: patient oriented x3, gait normal and moves all extremities Cranial nerves: Yes Equal, round and reactive pupils present Psych Appearance: grossly normal Mental Status: mental status grossly normal Assessment & Plan Assessment & Plan (1) GERD (gastroesophageal reflux disease): Code(s): K21.9 - Gastro-esophageal reflux disease without esophagitis Category: Medical (2) Elevated LFTs: Code(s): R79.89 - Other specified abnormal findings of blood chemistry Category: Medical (3) Crohn's disease: Code(s): K50.90 - Crohn's disease, unspecified, without complications Category: Medical (4) RUQ abdominal pain: Code(s): R10.11 - Right upper quadrant pain Category: Medical (5) Abnormal computed tomography of abdomen and pelvis: Code(s): R93.5 - Abnormal findings on diagnostic imaging of other abdominal regions, including retroperitoneum Category: Medical (6) Menorrhagia with regular cycle: Code(s): N92.0 - Excessive and frequent menstruation with regular cycle Category: Medical (7) Polyp of gallbladder: Code(s): K82.4 - Cholesterolosis of gallbladder Category: Medical Plan 34 YF diagnosed with Crohn's disease in 2010 and previously followed by [place] M[place]ugh [place] [facility] Last endoscopic evaluation was in 2020. Patient continues to have symptoms of intermittent nausea and vomiting and non- bloody diarrhea. Patient was treated with the Remicade infusion from 2013 to 2016.? Benadryl was given with Remicade due to history of allergic reaction after the 2nd or 3rd dose. Patient was advised further evaluation with upper endoscopy and colonoscopy to determine Crohn's disease activity prior to initiating intermodal customer service therapy. Handout on Crohn disease was mailed to the patient with her after visit summary. 02/10/22 Having a flare since the 1st or 2nd week of December,. Notes diarhhea, nausea, vomiting and intense heartburn. Burning inside the stomach. Back pain when pain is severe. 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 She states as of right now her Chrohn's still in remision but she does not wants to wait until she gets a flare up. Takes Omeprazole daily for GERD otherwise she can have acid reflux Taking edibles and THC with control of her symptoms States Pentasa was working and stopped the Pentasa after she started using weed and would like to resume taking Pentasa. Pt was advised to have labs checked and resume Pentasa (check Fecal calprotectin 4 to 6 weeks after resuming Pentasa) She plans to taper off Marijuana after she resumes Pentasa 05/19/24 Concerned about wt loss from 160 to 152 lbs. Has had diarrhea off and on - 2-4 soft non bloody BMs a day Lab results suggestive of active Crohn's disease - elevated CRP, fecal calprotectin > 200 Pt advised to start Entyvio - prefers to come in for infusions rather than take SQ injections at home (noted pain on S/Q injections in the past when she was on Humira) Abd US for evaluation of RUQ pain and elevated LFTs 05/18/25 1. Continue Entyvio infusion every 8 weeks. 2. Barium swallow for evaluation of persistent HB Change PPI if barium swallow is normal 3. Label Cutter referral for anemia 4. Abd US - FU of GB polyp FU in 3 months Orders: Orders Hepatitis A IgG Today K50.90 - Crohn's disease, unspecified, without complications T Spot TB Today K50.90 - Crohn's disease, unspecified, without complications Vitamin B12 and Folate Today K21.9 - Gastro-esophageal reflux disease without esophagitis, K50.90 - Crohn's disease, unspecified, without complications Vitamin D 25-OH Total Today K21.9 - Gastro-esophageal reflux disease without esophagitis, K50.90 - Crohn's disease, unspecified, without complications US abdomen limited Today K82.4 - Cholesterolosis of gallbladder Complete Blood Count Auto Diff Today K50.90 - Crohn's disease, unspecified, without complications Comprehensive Met. 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 Referral N92.0 - Excessive and frequent menstruation with regular cycle Medications: Changed From vedolizumab (Entyvio) administer week 6 of treatment 300 mg IV Q4W 0RF K50.90 - Crohn's disease, unspecified, without complications To vedolizumab (Entyvio) administer week 6 of treatment 300 mg IV Q8W 1 dose K50.90 - Crohn's disease, unspecified, without complications Coding Level of Care Code Est Pt Level 3 (00754) Diagnoses GERD (gastroesophageal reflux disease) K21.9 Elevated LFTs R79.89 Crohn's disease K50.90 RUQ abdominal pain R10.11 Abnormal computed tomography of abdomen and pelvis R93.5 Menorrhagia with regular cycle N92.0 Polyp of gallbladder K82.4 Time Spent (min) 19
[2025-05-18 08:09] VITALS: BP 108/68; PULSE 101; BMI 26.4
--- OUTSIDE RECORDS SUMMARY | 2025-05-18 08:21 | XMS_ITS | Clinical Summary ---
Author Organization [facility] Address [address] [place] [address] Phone Care Team Providers Care It Security Engineer Name Role Phone Patience Anna MD Primary Care Provider [phone] Allergies Active Allergy Reactions Criticality Noted Date Comments Penicillins Hives Medium 07/23/2024 Infliximab Anaphylaxis High 07/23/2024 Medications methocarbamoL (ROBAXIN) 750 mg tablet Take 2 tablets (1,500 mg total) by mouth 4 (four) times a day if needed for muscle spasms for up to 10 days. 40 each 07/23/2024 Active Medical History Medical History Date Comments Abdominal pain despite thera py for Crohn's disease ([facility] V24, [facility] V28) Family History Medical History Relation Name Comments [...] 89 07/23/2024 8:23 PM EST Temperature 36.7 C (98.1 F) 07/23/2024 8:23 PM EST Respiratory Rate 18 07/23/2024 8:23 PM EST [...] 5 Years) and At-Risk Patients (6 to 49 Years) (1 of 2 - PCV) 2008 Cervical Cancer Screening: P ap Smear 2010 Cholesterol Screening (Lipid Panel) 08/11/2023 HIV Screening 08/11/2023 Hepatitis C Screening 08/11/2023 Medicare Annual Wellness Visit 08/11/2023 Social Influencers of Health Screening 08/11/2023 Depression Screening 07/13/2024 COVID-19 Vaccine ( - 2024-2 6 season) 2025 11/12/2021, 04/13/2021, 03/12/2021 Influenza Vaccine (#1) 2025 DTaP,Tdap,and Td Vaccines (2 - Td or Tdap) 03/11/2033 03/11/2023 RSV Immunization Adult Patients (1 - 1-dose 75+ series) 2064 HIB Vaccines Aged Out No longer eligi [...] age to complete this topic Meningococcal B Vaccine Aged Out No l onger eligible based on patient's age to complete this topic RSV Immunization Patients Under 20 months Aged Out No longer eligible b ased on patient's age to complete this topic Varicella Vaccines Aged Out No longer eligible based on patient's age to complete this topic Insurance [employer] MEDICARE Member Subscriber Plan / Payer ( fective 2024-Present) Name:Stefany Cabral Relation to Subscriber:Self Name:Stefany Cabral Payer ID:[id number] Group ID:Not on file Type:Not on file Address: [facility] [address] [id number] MEDICAID - [place] Care Teams It Security Engineer Relationship Specialty Start Date End Date Patience Anna MD [address] [place] [address] PCP - General Internal Medicine 07/23/24
== END 2025-05-18 08:38 | disposition home or self-care (01) ==
LOC: HO.HGI 08:05
PROVIDERS: PCP Internal Medicine; Visit Provider Internal Medicine Gastroenterology
DX: K21.9 Gastro-esophageal reflux disease without esophagitis (principal); R79.89 Other specified abnormal findings of blood chemistry; K50.90 Crohn's disease, unspecified, without complications; R10.11 Right upper quadrant pain; R93.5 Abnormal findings on diagnostic imaging of other abdominal regions, including retroperitoneum; N92.0 Excessive and frequent menstruation with regular cycle; K82.4 Cholesterolosis of gallbladder
CPT/HCPCS: 99213

== ENCOUNTER → 2025-05-18 08:05 | Outpatient (BNVA) | payer OTHER, SELFPAY | PROVIDERS: PCP Internal Medicine; Visit Provider Internal Medicine Gastroenterology | DX: K21.9 Gastro-esophageal reflux disease without esophagitis (principal); R79.89 Other specified abnormal findings of blood chemistry; K50.90 Crohn's disease, unspecified, without complications; R10.11 Right upper quadrant pain; R93.5 Abnormal findings on diagnostic imaging of other abdominal regions, including retroperitoneum; N92.0 Excessive and frequent menstruation with regular cycle; K82.4 Cholesterolosis of gallbladder | CPT/HCPCS: 99212 ==

== ENCOUNTER 2025-06-14 13:26 | Outpatient (AMB) | payer OTHER, SELFPAY ==
--- NOTE | 2025-06-14 13:36 | MHC.OFFVIS ---
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: Senior Principal Software Engineer Present (Ashley) Accompanied by: Self / Same As Patient Allergies aloe vera Allergy (Mild, Verified 06/14/25 13:41) rash, hives, redness infliximab (From Remicade) Allergy (Mild, Verified 06/14/25 13:41) rash, hives, redness latex Allergy (Mild, Verified 06/14/25 13:41) rash, hives, redness Penicillins Allergy (Mild, Verified 06/14/25 13:41) Unknown kiwi Allergy (Severe, Uncoded 05/18/25 08:13) Anaphylaxis percocet Allergy (Mild, Uncoded 05/18/25 08:13) Hives Is last menstrual period known: Yes Last menstrual period: 05/24/25 Post menopausal: No Patient : No HPI Comments Details: Patient presents today as a new patient with concerns of heavier, longer periods. 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 she was being worked up for infertility. she reports January 2025 she began to have monthly periods lasting 7 days and soaking thru pads every 2 hrs. she reports cramping 1-2 days prior to menses radiating to her legs and low back. she has recently began to have facial hairs. reports a hx of fibroids with myeomectomy in 2022 she was in a relationship for several years, had a stillborn in 2010 and no since then, that partner has 6 children. she is in new relationship and this partner with 4 children [facility] Medical History (Updated 06/14/25 @ 14:36 by Renate Gusman CNM) History of infertility Fibroids GERD (gastroesophageal reflux disease) Crohn's disease Syncopal episodes Surgical History (Updated 06/14/25 @ 14:36 by Renate Gusman CNM) History of myomectomy History of esophagogastroduodenoscopy (EGD) Hx of colonoscopy Family History (Updated 06/14/25 @ 14:09 by Renate Gusman CNM) Father No problems noted. Mother No problems noted. Social History Household Members: None Are you a primary foster care therapist to a significant other at home: No Do you presently have visiting nurse or other home services: No Alcohol intake: current Alcohol intake frequency: a few times a month Patient Tobacco Use Status: Current everyday Tobacco user Tobacco use type: Smokeless Tobacco Female Reproductive History Menstrual Age of Menarche: 11 Duration of menses: 6-7 days Date of last menstrual period: 05/24/25 control method: none Total pregnancies: 2 Ab induced: 2 History of abnormal pap smear: Yes Review of Systems Const Reports no additional complaints Eyes Reports no additional complaints ENT Reports no additional complaints Card Reports no additional complaints Resp Reports no additional complaints GI Details: Follwed by Gastro for crohns Reports as per HPI Skin/Breast Reports system reviewed and no additional complaints, except as documented Physical Exam Vital Signs: Last Vital Signs BP 116/68 06/14/25 13:42 BMI result Body Mass Index 26.3 Const General: cooperative and healthy appearing Orientation/consciousness: patient oriented x3 HEENT Head: Yes normocephalic External Female Exam: normal external appearance and normal appearance of the urethra Speculum Exam - Vagina: normal appearance of the vagina and normal vaginal discharge Speculum Exam - Cervix: normal appearance of the cervix and nontender Bimanual exam- vagina & uterus: consistency normal, No Cervical tenderness present and non-tender Bimanual Exam- Adnexa, other: No adnexal tenderness Skin General skin exam: no rashes or lesions noted Neuro General: patient oriented x3 Psych Affect: normal affect Assessment & Plan Assessment & Plan (1) Menorrhagia with regular cycle: Code(s): N92.0 - Excessive and frequent menstruation with regular cycle Category: Medical (2) Hirsutism: Code(s): L68.0 - Hirsutism (3) History of infertility: Code(s): Z87.42 - Personal history of other diseases of the female genital tract Category: Medical (4) History of uterine fibroid: Code(s): Z86.018 - Personal history of other benign neoplasm Plan Labs as noted Follow up sono re-eval for fibroids Cont NSAIDs as needed for discomfort Sign AMARJIT to obtain records from previous providers May require new referral to [facility] and eval for hysdosalpynx Orders: Orders US pelvic and transvaginal 1 Week N92.0 - Excessive and frequent menstruation with regular cycle Testosterone, Free/Total Today L68.0 - Hirsutism, N92.0 - Excessive and frequent menstruation with regular cycle CT NG by PCR Vag/Cerv Today N92.0 - Excessive and frequent menstruation with regular cycle, Z20.2 - Contact with and (suspected) exposure to infections with a predominantly sexual mode of transmission TSH reflex Free T4 Today N92.0 - Excessive and frequent menstruation with regular cycle Follicle Stimulating Hormone Today L68.0 - Hirsutism Lutenizing Hormone Today L68.0 - Hirsutism, N92.0 - Excessive and frequent menstruation with regular cycle Coding Level of Care Code Tele New Pt Level 3 (05229) Diagnoses Menorrhagia with regular cycle N92.0 Hirsutism L68.0 History of infertility Z87.42 History of uterine fibroid Z86.018
[2025-06-14 13:42] VITALS: BP 116/68; BMI 26.3
--- OUTSIDE RECORDS SUMMARY | 2025-06-14 16:00 | XMS_ITS | Clinical Summary ---
Author Organization [facility] Address [address] [place] [address] Phone Care Team Providers Care Traveling Engineer Name Role Phone Patience Anna MD [...] pain despite thera py for Crohn's disease ([facility] V24, [facility] V28) Family History Medical History [...] ID:Not on file Type:Not on file Address: [facility] [address] [address] MEDICAID - [place] Care Teams Traveling Engineer Relationship Specialty Start Date End Date Patience Anna MD [address] [place] [address] PCP - General Internal Medicine 07/23/24
== END 2025-06-14 14:10 | disposition home or self-care (01) ==
LOC: HO.HWSM 13:27
PROVIDERS: PCP Internal Medicine; Visit Provider Advanced Practice Midwife
DX: N92.0 Excessive and frequent menstruation with regular cycle (principal); L68.0 Hirsutism; Z87.42 Personal history of other diseases of the female genital tract; Z86.018 Personal history of other benign neoplasm
CPT/HCPCS: 99203

== ENCOUNTER 2025-06-14 13:26 | Outpatient (REF) | payer OTHER, SELFPAY ==
[2025-06-14 16:08] LABS: MANUAL DIFF FLAG NO
[2025-06-14 16:19] LABS: Hematocrit 33.5 % (37.0-47.0); Hemoglobin 11.3 g/dl (12.0-16.0); Imm Gran Abs Auto 0.01 X10*3/uL (0.00-0.03); Imm Gran Pct Auto 0.1 % (0.0-0.4); Lymphocytes Absolute Auto 3.0 X10*3/uL (1.2-4.9); Mean Corpuscular HGB Conc 33.7 g/dl (31.0-35.0); Mean Corpuscular Hemoglobin 24.1 pg (27.0-33.0); Mean Corpuscular Volume 71.4 fL (80.0-98.0); NRBC Abs Auto 0.000 X10*3/uL (0.0-0.012); NRBC Pct Auto 0.0 /100WBC (0.0-0.2); Platelet Count 292 X10*3/uL (160-400); Red Blood Count 4.69 X10*6/uL (4.20-5.50); White Blood Count 7.3 X10*3/uL (4.8-10.8)
[2025-06-14 16:38] LABS: Alanine Aminotransferase 22 U/L (0-31); Albumin Level 4.7 g/dL (3.5-5.0); Alkaline Phosphatase 55 U/L (39-117); Anion Gap 11 (12-20); Aspartate Amino Transferase 20 U/L (5-31); Blood Urea Nitrogen 9 mg/dL (9-16); Calcium 9.3 mg/dL (8.4-10.2); Carbon Dioxide 23 mmol/L (22-29); Chloride 108 mmol/L (96-108); Estimated Glomerular Filt Rate > 60; Potassium 3.8 mmol/L (3.3-5.1); Sodium 138 mmol/L (135-145); Total Protein 7.8 g/dL (6.5-8.0)
[2025-06-14 16:54] LABS: Ferritin 15 ng/mL (10-122)
[2025-06-14 17:02] LABS: Folate 7.6 ng/mL (> or = 4.0); Vitamin B12 486 pg/mL (200-900)
[2025-06-15 04:02] LABS: Follicle Stimulating Hormone 2.0 mIU/mL
[2025-06-16 05:49] LABS: ~Hepatitis A Antibody IgG 0.60 S/CO (0.00-0.99)
[2025-06-17 10:38] LABS: TS Negative Control Passed; TS Panel A 0; TS Panel B 0; TS Positive Control Passed; TSpotTB Negative (Negative)
[2025-06-19 22:09] LABS: Testosterone, Free 2.0 pg/mL (0.1-6.4)
== END 2025-06-14 13:27 | disposition home or self-care (01) ==
LOC: HO.HHCL 13:26
PROVIDERS: PCP Internal Medicine; Referring Provider Internal Medicine Gastroenterology; Visit Provider Advanced Practice Midwife
DX: N92.0 Excessive and frequent menstruation with regular cycle (principal); L68.0 Hirsutism; K50.90 Crohn's disease, unspecified, without complications; K21.9 Gastro-esophageal reflux disease without esophagitis; Z20.2 Contact with and (suspected) exposure to infections with a predominantly sexual mode of transmission
CPT/HCPCS: 36415; 80053; 82306; 82607; 82728; 82746; 83001; 83002; 84402; 84403; 84443; 85025; 86140; 86481; 86708; 87491; 87591